=== PATIENT | female | born 1955 | race Caucasian/White ===

== ENCOUNTER 2020-08-06 18:43 | Observation (INO) | payer OTHER ==
[2020-08-06] MEDS ORDERED: Sodium Chloride 0.9% 1000 ML 1,000 ML IV STA (19:33)
[2020-08-06] MEDS ORDERED: PROTONIX 40 MG IV IV ONE ×2 (19:33→19:39)
[2020-08-06] MEDS ORDERED: Hydromorphone 1 mg/ml Injection IV ONE (19:33)
[2020-08-06] MEDS ORDERED: Zofran 4 MG/2 ML VIAL IV ONE (19:33)
[2020-08-06] MEDS ORDERED: Pepcid 20 MG VIAL IV ONE ×2 (19:33→19:39)
--- NOTE | 2020-08-06 19:33 | ERPHSYRPT ---
- History of Present Illness Time Seen by Provider: 08/06/20 19:29 Historian: patient, family Exam Limitations: no limitations Patient Subjective Stated Complaint: NVD x 3 hrs, blood in stool Triage Nursing Assessment: pt to ED c/o NVD and blood in stool x 3 hrs. multiple episodes vomiting and diarrhea in that time. bright red blood in toilet and on toilet paper. abd hx colitis. rates 6/10 pain sharp and worsenign while vomiting. bowel sounds active in all quads. no urinary problems. Physician History: pt has hx of colitis and now has recurrence. not on any meds for this ; abd with general abd tenderness; vomiting. reports BRBPR. reporting chest pain now. Timing/Duration: today Activities at Onset: none Quality: sharpness, stabbing Abdominal Pain Onset Location: LLQ, generalized abdomen Pain Radiation: LLQ, chest Severity of Pain-Max: moderate Severity of Pain-Current: moderate Modifying Factors: Improves With: nothing Associated Symptoms: chest pain, diarrhea, loss of appetite, nausea, vomiting Previous symptoms: different symptoms Allergies/Adverse Reactions: No Known Drug Allergies Allergy (Verified 08/06/20 18:58) Home Medications: Escitalopram Oxalate [Lexapro] 20 mg PO DAILY 06/07/16 [History] Furosemide 20 mg [Lasix 20 mg] 20 mg PO DAILY 06/07/16 [History] Levothyroxine Sodium [Synthroid] 30 mcg PO DAILY 06/07/16 [History] Cholecalciferol (Vitamin D3) [Vitamin D3] 2,000 unit PO DAILY 03/07/20 [History] Levothyroxine Sodium [Unithroid] 25 mcg PO DAILY 08/06/20 [History] Potassium Chloride 10 mg PO DAILY 08/06/20 [History] Hx Tetanus, Diphtheria Vaccination/Date Given: Yes Hx Influenza Vaccination/Date Given: Yes Hx Pneumococcal Vaccination/Date Given: No Immunizations Up to Date: Yes Travel Risk - International Travel Have you traveled outside of the country in past 3 weeks: No - Coronavirus Screening Are you exhibiting any of the following symptoms?: Yes Symptoms: Vomiting/Diarrhea Close contact with a COVID-19 positive Pt in past 14-21 Days: No - Review of Systems Constitutional: No Fever, No Chills Eyes: No Symptoms Ears, Nose, & Throat: No Symptoms Respiratory: No Cough, No Dyspnea Cardiac: Chest Pain, No Edema, No Syncope Abdominal/Gastrointestinal: Abdominal Pain, Nausea, Vomiting, Diarrhea Genitourinary Symptoms: No Dysuria Musculoskeletal: No Back Pain, No Neck Pain Skin: No Symptoms, No Rash Neurological: No Symptoms, No Dizziness, No Focal Weakness, No Sensory Changes Psychological: No Symptoms Endocrine: No Symptoms All Other Systems: Reviewed and Negative - Past Medical History Pertinent Past Medical History: Yes Neurological History: No Pertinent History ENT History: Cataracts Cardiac History: No Pertinent History Respiratory History: No Pertinent History Endocrine Medical History: Hypothyroidism Musculoskeletal History: No Pertinent History GI Medical History: Colitis History: No Pertinent History Psycho-Social History: No Pertinent History Female Reproductive Disorders: No Pertinent History Other Medical History: THYROIDECTOMY, HYSTERECTOMY - Past Surgical History Past Surgical History: Yes Neuro Surgical History: No Pertinent History Cardiac: No Pertinent History Respiratory: No Pertinent History Gastrointestinal: No Pertinent History Genitourinary: No Pertinent History Musculoskeletal: No Pertinent History Female Surgical History: Hysterectomy Other Surgical History: thyroid surgery, abd exploritory sx, scar tissue removed - 1999. - Social History Smoking Status: Never smoker Exposure to second hand smoke: No Drug Use: none Patient Lives Alone: No - Female History Hx Now: No - Nursing Vital Signs Nursing Vital Signs: Initial Vital Signs Temperature 97.5 F 08/06/20 18:50 Pulse Rate 82 08/06/20 18:50 Respiratory Rate 16 08/06/20 18:50 Blood Pressure 120/81 08/06/20 18:50 O2 Sat by Pulse Oximetry 97 08/06/20 18:50 Pain Scale Pain Intensity 0 - Physical Exam General Appearance: no apparent distress, alert Eye Exam: PERRL/EOMI, eyes nml inspection Ears, Nose, Throat Exam: normal ENT inspection, pharynx normal, moist mucous membranes Neck Exam: normal inspection, non-tender, supple, full range of motion Respiratory Exam: normal breath sounds, lungs clear, No respiratory distress Cardiovascular Exam: regular rate/rhythm, normal heart sounds Gastrointestinal/Abdomen Exam: soft, tenderness, No mass, No pulsatile mass, No rebound Pelvic Exam: deferred Rectal Exam: deferred Back Exam: normal inspection, normal range of motion, No CVA tenderness, No vertebral tenderness Extremity Exam: normal inspection, normal range of motion, pelvis stable Neurologic Exam: alert, oriented x 3, cooperative, normal mood/affect, nml cerebellar function, sensation nml, No motor deficits Skin Exam: normal color, warm, dry SpO2: 97 - Course Nursing assessment & vital signs reviewed: Yes EKG Interpreted by Me: Sinus Rhythm, Non-specific ST Changes - Radiology Exams Chest X-ray Interpretation: Reviewed by me, Other (granulomata bilateral) Ordered Tests: Active Orders 24 hr Category Date Time Status EKG-ER Only STAT Care 08/06/20 19:33 Active IV Insertion STAT Care 08/06/20 19:33 Active ABDOMEN AND PELVIS W/0 CONTRAS [CT] Stat Exams 08/06/20 19:34 Taken CHEST 1 VIEW (PORTABLE) Stat Exams 08/06/20 19:34 Taken AMYLASE Stat Lab 08/06/20 19:20 Completed CBC W DIFF Stat Lab 08/06/20 19:20 Completed CMP Stat Lab 08/06/20 19:20 Completed CULTURE,URINE Stat Lab 08/06/20 19:20 Received LIPASE Stat Lab 08/06/20 19:20 Completed Lactic Acid Stat Lab 08/06/20 19:40 Completed TROPONIN Q3H Lab 08/06/20 19:20 Completed TROPONIN Q3H Lab 08/06/20 23:00 Completed TROPONIN Q3H Lab 08/07/20 01:45 Ordered TROPONIN Q3H Lab 08/07/20 04:45 Ordered TROPONIN Q3H Lab 08/07/20 07:45 Ordered UA W/RFX UR CULTURE Stat Lab 08/06/20 19:20 Completed Medication Summary Discontinued Medications Generic Name Dose Route Start Last Admin Trade Name Freq PRN Reason Stop Dose Admin Famotidine 20 mg 08/06/20 19:33 08/06/20 19:50 Pepcid 20 Mg Vial IV 08/06/20 19:34 20 mg STAT ONE Administration Famotidine Confirm 08/06/20 19:39 Pepcid 20 Mg Vial Administered 08/06/20 19:40 Dose 20 mg IV .STK-MED ONE Hydromorphone HCl 0.5 mg 08/06/20 19:33 08/06/20 19:57 Hydromorphone 1 Mg/Ml Injection IV 08/06/20 19:34 0.5 mg STAT ONE Administration Hydromorphone HCl Confirm 08/06/20 19:39 Hydromorphone 1 Mg/Ml Injection Administered 08/06/20 19:40 Dose 1 mg .ROUTE .STK-MED ONE Sodium Chloride 1,000 mls @ 999 mls/hr 08/06/20 19:33 08/06/20 19:45 Sodium Chloride 0.9% 1000 Ml IV 08/06/20 20:33 999 mls/hr .Q1H1M STA Administration Sodium Chloride Confirm 08/06/20 19:40 Sodium Chloride 0.9% 1000 Ml Administered 08/06/20 19:41 Dose 1,000 mls @ ud .ROUTE .STK-MED ONE Levofloxacin/Dextrose 750 mg in 150 mls @ 100 mls/hr 08/06/20 21:04 08/06/20 21:10 Levofloxacin 750mg/150ml D5w IV 08/06/20 22:33 100 ml/hr STAT STA 100 mls/hr Administration Metronidazole 500 mg in 100 mls @ 200 mls/hr 08/06/20 21:05 08/06/20 21:55 Flagyl 500 Mg Ivpb IV 08/06/20 21:34 200 ml/hr STAT STA 200 mls/hr Administration Levofloxacin/Dextrose Confirm 08/06/20 21:09 Levofloxacin 750mg/150ml D5w Administered 08/06/20 21:10 Dose 750 mg in 150 mls @ ud IV .STK-MED ONE Metronidazole Confirm 08/06/20 21:53 Flagyl 500 Mg Ivpb Administered 08/06/20 21:54 Dose 500 mg in 100 mls @ ud IV .STK-MED ONE Ondansetron HCl 4 mg 08/06/20 19:33 08/06/20 19:47 Zofran 4 Mg/2 Ml Vial IV 08/06/20 19:34 4 mg STAT ONE Administration Ondansetron HCl Confirm 08/06/20 19:39 Zofran 4 Mg/2 Ml Vial Administered 08/06/20 19:40 Dose 4 mg .ROUTE .STK-MED ONE Pantoprazole Sodium 40 mg 08/06/20 19:33 08/06/20 19:52 Protonix 40 Mg Iv IV 08/06/20 19:34 40 mg STAT ONE Administration Pantoprazole Sodium Confirm 08/06/20 19:39 Protonix 40 Mg Iv Administered 08/06/20 19:40 Dose 40 mg IV .STK-MED ONE Lab/Rad Data: Laboratory Result Diagrams 08/06/20 19:20 08/06/20 19:20 Laboratory Results 08/06/20 08/06/20 08/06/20 Range/Units 23:09 23:00 19:40 WBC (4.0-10.5) K/mm3 RBC (4.1-5.4) M/mm3 Hgb (12.0-16.0) gm/dl Hct (35-47) % MCV (78-100) fl MCH (26-32) pg MCHC (32-36) g/dl RDW (11.5-14.0) % Plt Count (150-450) K/mm3 MPV (7.5-11.0) fl Gran % (36.0-66.0) % Eos # (Auto) (0-0.5) Absolute Lymphs (auto) (1.0-4.6) Absolute Monos (auto) (0.0-1.3) Lymphocytes % (24.0-44.0) % Monocytes % (0.0-12.0) % Eosinophils % (0.00-5.0) % Basophils % (0.0-0.4) % Absolute Granulocytes (1.4-6.9) Basophils # (0-0.4) Sodium (137-145) mmol/L Potassium (3.5-5.1) mmol/L Chloride (98-107) mmol/L Carbon Dioxide (22-30) mmol/L Anion Gap (5-15) MEQ/L BUN (7-17) mg/dL Creatinine (0.52-1.04) mg/dL Estimated GFR ML/MIN Glucose (74-106) mg/dL Lactic Acid 0.8 (0.4-2.0) Calcium (8.4-10.2) mg/dL Total Bilirubin (0.2-1.3) mg/dL AST (14-36) U/L ALT (0-35) U/L Alkaline Phosphatase (38-126) U/L Troponin I < 0.012 (0.000-0.034) ng/mL Serum Total Protein (6.3-8.2) g/dL Albumin (3.5-5.0) g/dL Amylase (30-110) U/L Lipase (23-300) U/L Urine Color (YELLOW) Urine Appearance (CLEAR) Urine pH (5-6) Ur Specific Roscoe (1.005-1.025) Urine Protein (Negative) Urine Ketones (NEGATIVE) Urine Blood (0-5) Marco A/ul Urine Nitrite (NEGATIVE) Urine Bilirubin (NEGATIVE) Urine Urobilinogen (0-1) mg/dL Ur Leukocyte Esterase (NEGATIVE) Urine WBC (Auto) (0-5) /HPF Urine RBC (Auto) (0-2) /HPF U Epithel Cells (Auto) (FEW) /HPF Urine Bacteria (Auto) (NEGATIVE) /HPF Urine Culture Reflexed (NO) Urine Glucose (NEGATIVE) mg/dL Influenza Type A Ag NEGATIVE (NEGATIVE) Influenza Type B Ag NEGATIVE (NEGATIVE) RSV (PCR) NEGATIVE (Negative) SARS-CoV-2 (PCR) NEGATIVE (NEGATIVE) 08/06/20 08/06/20 08/06/20 Range/Units 19:20 19:20 19:20 WBC 11.7 H (4.0-10.5) K/mm3 RBC 4.47 (4.1-5.4) M/mm3 Hgb 13.4 (12.0-16.0) gm/dl Hct 42.1 (35-47) % MCV 94.2 (78-100) fl MCH 30.0 (26-32) pg MCHC 31.8 L (32-36) g/dl RDW 13.6 (11.5-14.0) % Plt Count 367 (150-450) K/mm3 MPV 9.9 (7.5-11.0) fl Gran % 81.8 H (36.0-66.0) % Eos # (Auto) 0.23 (0-0.5) Absolute Lymphs (auto) 1.04 (1.0-4.6) Absolute Monos (auto) 0.83 (0.0-1.3) Lymphocytes % 8.9 L (24.0-44.0) % Monocytes % 7.1 (0.0-12.0) % Eosinophils % 2.0 (0.00-5.0) % Basophils % 0.2 (0.0-0.4) % Absolute Granulocytes 9.57 H (1.4-6.9) Basophils # 0.02 (0-0.4) Sodium 140 (137-145) mmol/L Potassium 3.5 (3.5-5.1) mmol/L Chloride 102 (98-107) mmol/L Carbon Dioxide 31 H (22-30) mmol/L Anion Gap 10.3 (5-15) MEQ/L BUN 17 (7-17) mg/dL Creatinine 0.90 (0.52-1.04) mg/dL Estimated GFR > 60.0 ML/MIN Glucose 119 H (74-106) mg/dL Lactic Acid (0.4-2.0) Calcium 10.0 (8.4-10.2) mg/dL Total Bilirubin 0.70 (0.2-1.3) mg/dL AST 47 H (14-36) U/L ALT 32 (0-35) U/L Alkaline Phosphatase 121 (38-126) U/L Troponin I < 0.012 (0.000-0.034) ng/mL Serum Total Protein 8.2 (6.3-8.2) g/dL Albumin 4.6 (3.5-5.0) g/dL Amylase 72 (30-110) U/L Lipase 107 (23-300) U/L Urine Color (YELLOW) Urine Appearance (CLEAR) Urine pH (5-6) Ur Specific Roscoe (1.005-1.025) Urine Protein (Negative) Urine Ketones (NEGATIVE) Urine Blood (0-5) Marco A/ul Urine Nitrite (NEGATIVE) Urine Bilirubin (NEGATIVE) Urine Urobilinogen (0-1) mg/dL Ur Leukocyte Esterase (NEGATIVE) Urine WBC (Auto) (0-5) /HPF Urine RBC (Auto) (0-2) /HPF U Epithel Cells (Auto) (FEW) /HPF Urine Bacteria (Auto) (NEGATIVE) /HPF Urine Culture Reflexed (NO) Urine Glucose (NEGATIVE) mg/dL Influenza Type A Ag (NEGATIVE) Influenza Type B Ag (NEGATIVE) RSV (PCR) (Negative) SARS-CoV-2 (PCR) (NEGATIVE) 08/06/20 Range/Units 19:20 WBC (4.0-10.5) K/mm3 RBC (4.1-5.4) M/mm3 Hgb (12.0-16.0) gm/dl Hct (35-47) % MCV (78-100) fl MCH (26-32) pg MCHC (32-36) g/dl RDW (11.5-14.0) % Plt Count (150-450) K/mm3 MPV (7.5-11.0) fl Gran % (36.0-66.0) % Eos # (Auto) (0-0.5) Absolute Lymphs (auto) (1.0-4.6) Absolute Monos (auto) (0.0-1.3) Lymphocytes % (24.0-44.0) % Monocytes % (0.0-12.0) % Eosinophils % (0.00-5.0) % Basophils % (0.0-0.4) % Absolute Granulocytes (1.4-6.9) Basophils # (0-0.4) Sodium (137-145) mmol/L Potassium (3.5-5.1) mmol/L Chloride (98-107) mmol/L Carbon Dioxide (22-30) mmol/L Anion Gap (5-15) MEQ/L BUN (7-17) mg/dL Creatinine (0.52-1.04) mg/dL Estimated GFR ML/MIN Glucose (74-106) mg/dL Lactic Acid (0.4-2.0) Calcium (8.4-10.2) mg/dL Total Bilirubin (0.2-1.3) mg/dL AST (14-36) U/L ALT (0-35) U/L Alkaline Phosphatase (38-126) U/L Troponin I (0.000-0.034) ng/mL Serum Total Protein (6.3-8.2) g/dL Albumin (3.5-5.0) g/dL Amylase (30-110) U/L Lipase (23-300) U/L Urine Color RED (YELLOW) Urine Appearance TURBID (CLEAR) Urine pH 8.0 (5-6) Ur Specific Roscoe 1.013 (1.005-1.025) Urine Protein >=500 (Negative) Urine Ketones SMALL (NEGATIVE) Urine Blood MODERATE (0-5) Marco A/ul Urine Nitrite NEGATIVE (NEGATIVE) Urine Bilirubin MODERATE (NEGATIVE) Urine Urobilinogen 4 (0-1) mg/dL Ur Leukocyte Esterase MODERATE (NEGATIVE) Urine WBC (Auto) 3-5 (0-5) /HPF Urine RBC (Auto) 51-100 (0-2) /HPF U Epithel Cells (Auto) OCCASIONAL (FEW) /HPF Urine Bacteria (Auto) PACKED (NEGATIVE) /HPF Urine Culture Reflexed YES (NO) Urine Glucose NEGATIVE (NEGATIVE) mg/dL Influenza Type A Ag (NEGATIVE) Influenza Type B Ag (NEGATIVE) RSV (PCR) (Negative) SARS-CoV-2 (PCR) (NEGATIVE) - Progress Progress: improved, re-examined Progress Note: 08/06/20 22:32 discussed with pt and Dr. Saavedra and all agree best to place pt in on obs , but also need a rapid COvid to exclude. 08/07/20 00:37 we had to wait for a covid test which added to the time prior to admission, and had to wait until decision to admit was confirmed; but there was some possibility for covid in view of the diarrhea - so this test was best advised. . Discussed with : Paul Will see patient in: hospital (observation) Counseled pt/family regarding: lab results, diagnosis, need for follow-up, rad results - Departure Departure Disposition: Observation Clinical Impression: Colitis Condition: Good Critical Care Time: No Referrals: NICO SAAVEDRA DO [Primary Care Provider] -
[2020-08-06] MEDS ORDERED: Zofran 4 MG/2 ML VIAL ONE (19:39)
[2020-08-06] MEDS ORDERED: Hydromorphone 1 mg/ml Injection ONE (19:39)
[2020-08-06] MEDS ORDERED: Sodium Chloride 0.9% 1000 ML 1,000 ML ONE (19:40)
[2020-08-06 19:43] LABS: Absolute Neutrophil Ct (ANC) 9.57 (1.4-6.9); BASOPHIL % 0.2 % (0.0-0.4); Basophil (Absolute #) 0.02 (0-0.4); Eosinophil (Absolute #) 0.23 (0-0.5); Hematocrit 42.1 % (35-47); Hemoglobin 13.4 gm/dl (12.0-16.0); Lymphocyte (Absolute #) 1.04 (1.0-4.6); Lymphocytes % 8.9 % (24.0-44.0); Mean Cell Volume 94.2 fl (78-100); Mean Corpuscular Hgb Concent. 31.8 g/dl (32-36); Mean Platelet Volume 9.9 fl (7.5-11.0); Monocyte (Absolute #) 0.83 (0.0-1.3); Monocytes % 7.1 % (0.0-12.0); Neutrophil % 81.8 % (36.0-66.0); Platelet Count 367 K/mm3 (150-450); Red Blood Count 4.47 M/mm3 (4.1-5.4); Red Cell Distribution Width 13.6 % (11.5-14.0); White Blood Count 11.7 K/mm3 (4.0-10.5)
[2020-08-06 19:51] LABS: ALBUMIN 4.6 g/dL (3.5-5.0); ALKALINE PHOSPHATASE 121 U/L (38-126); AMYLASE 72 U/L (30-110); ANION GAP 10.3 MEQ/L (5-15); BLOOD UREA NITROGEN 17 mg/dL (7-17); CHLORIDE 102 mmol/L (98-107); Carbon Dioxide 31 mmol/L (22-30); EST GLOMERULAR FILTRATION RATE > 60.0 ML/MIN; Glucose 119 mg/dL (74-106); LIPASE 107 U/L (23-300); Potassium 3.5 mmol/L (3.5-5.1); SGOT/AST 47 U/L (14-36); SGPT/ALT 32 U/L (0-35); SODIUM 140 mmol/L (137-145); Total Protein 8.2 g/dL (6.3-8.2)
[2020-08-06 19:59] LABS: Appearance TURBID (CLEAR); Bacteria PACKED /HPF (NEGATIVE); Bilirubin MODERATE (NEGATIVE); Blood MODERATE Ery/ul (0-5); Glucose NEGATIVE (NEGATIVE); Ketones SMALL (NEGATIVE); Leukocyte Esterase MODERATE (NEGATIVE); Nitrite NEGATIVE (NEGATIVE); Protein,Urine Dip >=500 (Negative); Specific Gravity 1.013 (1.005-1.025); Urobilinogen 4 mg/dL (0-1)
[2020-08-06 20:00] LABS: Epithelial Cells OCCASIONAL /HPF (FEW); RBC 51-100 /HPF (0-2)
[2020-08-06] MEDS ORDERED: LEVOFLOXACIN 750MG/150ML D5W 750 MG/150 ML BAG IV STA (21:04)
[2020-08-06] MEDS ORDERED: FLAGYL 500 MG IVPB 500 MG/100 ML BAG IV STA (21:05)
[2020-08-06] MEDS ORDERED: LEVOFLOXACIN 750MG/150ML D5W 750 MG/150 ML BAG IV ONE (21:09)
[2020-08-06] MEDS ORDERED: FLAGYL 500 MG IVPB 500 MG/100 ML BAG IV ONE (21:53)
[2020-08-06 23:51] LABS: INFLUENZA A NEGATIVE (NEGATIVE); INFLUENZA B NEGATIVE (NEGATIVE); RESPIRATORY SYNCTIAL VIRUS NEGATIVE (Negative)
[2020-08-07] MEDS ORDERED: HUMULIN R SQ PRN (00:56)
[2020-08-07] MEDS ORDERED: Phenergan 25 MG INJ IM PRN (00:56)
[2020-08-07] MEDS: Sodium Chloride 0.9% 1000 ML 1,000 ML IV SCH ×5 (01:17→21:43)
[2020-08-07] MEDS ORDERED: SYNTHROID 50 MCG PO ONE (02:06)
[2020-08-07 05:27] LABS: Absolute Neutrophil Ct (ANC) 5.83 (1.4-6.9); BASOPHIL % 0.1 % (0.0-0.4); Basophil (Absolute #) 0.01 (0-0.4); Eosinophil % 2.3 % (0.00-5.0); Eosinophil (Absolute #) 0.16 (0-0.5); Hematocrit 34.2 % (35-47); Hemoglobin 10.7 gm/dl (12.0-16.0); Lymphocyte (Absolute #) 0.55 (1.0-4.6); Lymphocytes % 7.9 % (24.0-44.0); Mean Cell Volume 95.3 fl (78-100); Mean Corpuscular Hemoglobin 29.8 pg (26-32); Mean Corpuscular Hgb Concent. 31.3 g/dl (32-36); Mean Platelet Volume 9.8 fl (7.5-11.0); Monocyte (Absolute #) 0.41 (0.0-1.3); Monocytes % 5.9 % (0.0-12.0); Neutrophil % 83.8 % (36.0-66.0); Platelet Count 281 K/mm3 (150-450); Red Blood Count 3.59 M/mm3 (4.1-5.4); Red Cell Distribution Width 13.7 % (11.5-14.0)
[2020-08-07 05:42] LABS: ALBUMIN 3.3 g/dL (3.5-5.0); ALKALINE PHOSPHATASE 78 U/L (38-126); ANION GAP 7.3 MEQ/L (5-15); BLOOD UREA NITROGEN 16 mg/dL (7-17); CHLORIDE 105 mmol/L (98-107); Calcium 8.1 mg/dL (8.4-10.2); Carbon Dioxide 28 mmol/L (22-30); Creatinine 1 0.77 mg/dL (0.52-1.04); EST GLOMERULAR FILTRATION RATE > 60.0 ML/MIN; Glucose 103 mg/dL (74-106); Potassium 3.8 mmol/L (3.5-5.1); SGOT/AST 29 U/L (14-36); SGPT/ALT 19 U/L (0-35); SODIUM 136 mmol/L (137-145); Total Protein 5.8 g/dL (6.3-8.2)
[2020-08-07 09:06] LABS: Slide Review 1 YES
--- NOTE | 2020-08-07 09:19 | XRAY ---
Indication: Left lower quadrant pain. Colitis. Multiple contiguous axial images obtained through the abdomen and pelvis without contrast. Comparison: February 28, 2010. Lung bases demonstrates new bilateral dependent atelectasis and right lower lobe calcified granuloma. No infiltrate or effusion. Heart is now enlarged. New large hiatal hernia with partial intrathoracic stomach. Noncontrasted stomach and bowel loops appear nonobstructed. Normal appendix. Mild fluid distended colon throughout its including rectum favoring diarrhea. No free fluid/air. Again hysterectomy. Remaining liver, gallbladder, pancreas, spleen, adrenal glands, kidneys, ureters, and bladder appear unremarkable for noncontrast exam. Minimal aortic calcifications without AAA. Osseous structures intact again with left L5 spondylolysis without spondylolisthesis. Impression: 1. New fluid distended colon favoring diarrhea. 2. New hiatal hernia with partial intrathoracic stomach and cardiomegaly. 3. Stable L5 spondylolysis without spondylolisthesis. Comment: Preliminary interpretation was made by [facility]. No critical discrepancy.
--- NOTE | 2020-08-07 09:19 | XRAY ---
Indication: Chest pain. Comparison: July 28, 2020. Portable chest again demonstrates normal heart and lungs with incidental calcified granulomas. No new/acute findings.
[2020-08-07] MEDS ORDERED: ULTRAM 50 MG PO PRN ×2 (11:26→13:45)
--- NOTE | 2020-08-07 13:42 | PCM.HP ---
History of Present Illness - Chief Complaint Chief Complaint: colitis History of Present Illness: is a 65 year old female with Hx HTN and aquired hypothyroid who presented to ER after sudden onset of vomiting and diarrhea,several bouts of loose stool with red blood,denies fever.States she and her had fried catfish from [place] and she ate 1/2 a piece. Her had the same food and no GI symptoms. No further vomiting. Is tolerating liquids. Has had 3 loose stools today but the last one did not have any red/blood. C/O left sided abdominal discomfort and nausea ,dry mouth.Patient gives a Hx colitis but is not followed by GI specialist. - Review of Systems Constitutional: Fatigue, Other (denies fever or chills) Ears, Nose, & Throat: Other (denies sinus symptoms or sore throat, C/O dry mouth) Cardiac: Chest Pain (fullness epigastrum), Other (takes a prn Lasix 20mg for swelling ) Abdominal/Gastrointestinal: Abdominal Pain, Nausea, Vomiting, Diarrhea, Hematochezia Genitourinary Symptoms: No Symptoms Musculoskeletal: No Symptoms Skin: No Symptoms Neurological: No Symptoms, Headache Psychological: Depression (controlledon current med) Endocrine: Other (Recently was off thyroid meds ,states forgot to take meds.) Hematologic/Lymphatic: No Symptoms Immunological/Allergic: No Symptoms Medications & Allergies Home Medications: Home Medication List Escitalopram Oxalate [Lexapro] 20 mg PO DAILY 06/07/16 [History Confirmed 08/07/20] Furosemide 20 mg [Lasix 20 mg] 20 mg PO DAILY 06/07/16 [History Confirmed 08/07/20] Levothyroxine Sodium [Synthroid] 75 mcg PO HS 06/07/16 [History Confirmed 08/07/20] Cholecalciferol (Vitamin D3) [Vitamin D3] 2,000 unit PO DAILY 03/07/20 [History Confirmed 08/07/20] Potassium Chloride 10 mg PO DAILY 08/06/20 [History Confirmed 08/07/20] Lisinopril 20 mg [Zestril 20 MG] 20 mg PO DAILY 08/07/20 [History Confirmed 08/07/20] Omeprazole 40 mg PO DAILY 08/07/20 [History Confirmed 08/07/20] Thyroid,Pork [[place] Thyroid] 60 mg PO HS 08/07/20 [History Confirmed 08/07/20] Tramadol HCl 50 mg [Ultram 50 mg] 50 mg PO Q6HPRN PRN 08/07/20 [History Confirmed 08/07/20] Allergies/Adverse Reactions: Allergies Allergy/AdvReac Type Severity Reaction Status Date / Time No Known Drug Allergies Allergy Verified 08/07/20 01:26 - Past Medical History Past Medical History: Yes Neurological History: No Pertinent History ENT History: Cataracts Cardiac History: No Pertinent History CARDIAC HISTORY: Hypertension Respiratory History: No Pertinent History Endocrine Medical History: Hypothyroidism Musculoskelatal History: No Pertinent History GI Medical History: Colitis History: No Pertinent History Pyscho-Social History: Depression Reproductive Disorders: No Pertinent History Comment: THYROIDECTOMY, HYSTERECTOMY - Female History Are you now?: No - Past Surgical History Past Surgical History: Yes Neuro Surgical History: No Pertinent History Cardiac History: No Pertinent History Respiratory Surgery: No Pertinent History GI Surgical History: No Pertinent History Genitourinary Surgical Hx: No Pertinent History Musculskeletal Surgical Hx: No Pertinent History Female Surgical History: Hysterectomy Other Surgical History: thyroid surgery, abd exploritory sx, scar tissue removed - 1999. - Social History Smoking Status: Never smoker Exposure to second hand smoke: No Alcohol: None Drug Use: none - Physical Exam Vital Signs: Vital Signs - 24 hr Temp Pulse Resp BP Pulse Ox 08/07/20 12:00 98.9 F 72 20 130/61 98 08/07/20 08:00 98.3 F 64 20 97/48 95 08/07/20 04:00 98.2 F 64 16 110/55 92 L 08/07/20 01:55 98.1 F 69 16 117/64 94 L 08/07/20 00:40 97 08/07/20 00:00 68 20 109/65 95 08/06/20 23:00 74 20 124/59 95 08/06/20 22:00 74 16 122/70 96 08/06/20 21:00 83 16 138/75 95 08/06/20 20:00 84 18 129/71 97 08/06/20 18:50 97.5 F 82 16 120/81 97 General Appearance: no apparent distress Neurologic Exam: alert, oriented x 3, cooperative, normal mood/affect Eye Exam: eyes nml inspection Ears, Nose, Throat Exam: normal ENT inspection Neck Exam: normal inspection (no mass) Respiratory Exam: normal breath sounds, lungs clear Cardiovascular Exam: regular rate/rhythm, normal heart sounds Gastrointestinal/Abdomen Exam: soft, tenderness (left mid and LLQ) Pelvic Exam: not done Rectal Exam: not done Back Exam: normal inspection Results - Labs Lab/Micro Results: Lab Results-Last 24 Hours 08/06/20 08/06/20 08/06/20 Range/Units 19:20 19:20 19:20 WBC 11.7 H (4.0-10.5) K/mm3 RBC 4.47 (4.1-5.4) M/mm3 Hgb 13.4 (12.0-16.0) gm/dl Hct 42.1 (35-47) % MCV 94.2 (78-100) fl MCH 30.0 (26-32) pg MCHC 31.8 L (32-36) g/dl RDW 13.6 (11.5-14.0) % Plt Count 367 (150-450) K/mm3 MPV 9.9 (7.5-11.0) fl Gran % 81.8 H (36.0-66.0) % Eos # (Auto) 0.23 (0-0.5) Absolute Lymphs (auto) 1.04 (1.0-4.6) Absolute Monos (auto) 0.83 (0.0-1.3) Lymphocytes % 8.9 L (24.0-44.0) % Monocytes % 7.1 (0.0-12.0) % Eosinophils % 2.0 (0.00-5.0) % Basophils % 0.2 (0.0-0.4) % Absolute Granulocytes 9.57 H (1.4-6.9) Basophils # 0.02 (0-0.4) Sodium 140 (137-145) mmol/L Potassium 3.5 (3.5-5.1) mmol/L Chloride 102 (98-107) mmol/L Carbon Dioxide 31 H (22-30) mmol/L Anion Gap 10.3 (5-15) MEQ/L BUN 17 (7-17) mg/dL Creatinine 0.90 (0.52-1.04) mg/dL Estimated GFR > 60.0 ML/MIN Glucose 119 H (74-106) mg/dL Lactic Acid (0.4-2.0) Calcium 10.0 (8.4-10.2) mg/dL Total Bilirubin 0.70 (0.2-1.3) mg/dL AST 47 H (14-36) U/L ALT 32 (0-35) U/L Alkaline Phosphatase 121 (38-126) U/L Troponin I (0.000-0.034) ng/mL Serum Total Protein 8.2 (6.3-8.2) g/dL Albumin 4.6 (3.5-5.0) g/dL Amylase 72 (30-110) U/L Lipase 107 (23-300) U/L Urine Color RED (YELLOW) Urine Appearance TURBID (CLEAR) Urine pH 8.0 (5-6) Ur Specific [place] 1.013 (1.005-1.025) Urine Protein >=500 (Negative) Urine Ketones SMALL (NEGATIVE) Urine Blood MODERATE (0-5) Marco A/ul Urine Nitrite NEGATIVE (NEGATIVE) Urine Bilirubin MODERATE (NEGATIVE) Urine Urobilinogen 4 (0-1) mg/dL Ur Leukocyte Esterase MODERATE (NEGATIVE) Urine WBC (Auto) 3-5 (0-5) /HPF Urine RBC (Auto) 51-100 (0-2) /HPF U Epithel Cells (Auto) OCCASIONAL (FEW) /HPF Urine Bacteria (Auto) PACKED (NEGATIVE) /HPF Urine Culture Reflexed YES (NO) Urine Glucose NEGATIVE (NEGATIVE) mg/dL Influenza Type A Ag (NEGATIVE) Influenza Type B Ag (NEGATIVE) RSV (PCR) (Negative) SARS-CoV-2 (PCR) (NEGATIVE) Slides for Path Review 08/06/20 08/06/20 08/06/20 Range/Units 19:20 19:40 23:00 WBC (4.0-10.5) K/mm3 RBC (4.1-5.4) M/mm3 Hgb (12.0-16.0) gm/dl Hct (35-47) % MCV (78-100) fl MCH (26-32) pg MCHC (32-36) g/dl RDW (11.5-14.0) % Plt Count (150-450) K/mm3 MPV (7.5-11.0) fl Gran % (36.0-66.0) % Eos # (Auto) (0-0.5) Absolute Lymphs (auto) (1.0-4.6) Absolute Monos (auto) (0.0-1.3) Lymphocytes % (24.0-44.0) % Monocytes % (0.0-12.0) % Eosinophils % (0.00-5.0) % Basophils % (0.0-0.4) % Absolute Granulocytes (1.4-6.9) Basophils # (0-0.4) Sodium (137-145) mmol/L Potassium (3.5-5.1) mmol/L Chloride (98-107) mmol/L Carbon Dioxide (22-30) mmol/L Anion Gap (5-15) MEQ/L BUN (7-17) mg/dL Creatinine (0.52-1.04) mg/dL Estimated GFR ML/MIN Glucose (74-106) mg/dL Lactic Acid 0.8 (0.4-2.0) Calcium (8.4-10.2) mg/dL Total Bilirubin (0.2-1.3) mg/dL AST (14-36) U/L ALT (0-35) U/L Alkaline Phosphatase (38-126) U/L Troponin I < 0.012 < 0.012 (0.000-0.034) ng/mL Serum Total Protein (6.3-8.2) g/dL Albumin (3.5-5.0) g/dL Amylase (30-110) U/L Lipase (23-300) U/L Urine Color (YELLOW) Urine Appearance (CLEAR) Urine pH (5-6) Ur Specific [place] (1.005-1.025) Urine Protein (Negative) Urine Ketones (NEGATIVE) Urine Blood (0-5) Marco A/ul Urine Nitrite (NEGATIVE) Urine Bilirubin (NEGATIVE) Urine Urobilinogen (0-1) mg/dL Ur Leukocyte Esterase (NEGATIVE) Urine WBC (Auto) (0-5) /HPF Urine RBC (Auto) (0-2) /HPF U Epithel Cells (Auto) (FEW) /HPF Urine Bacteria (Auto) (NEGATIVE) /HPF Urine Culture Reflexed (NO) Urine Glucose (NEGATIVE) mg/dL Influenza Type A Ag (NEGATIVE) Influenza Type B Ag (NEGATIVE) RSV (PCR) (Negative) SARS-CoV-2 (PCR) (NEGATIVE) Slides for Path Review 08/06/20 08/07/20 08/07/20 Range/Units 23:09 02:05 04:42 WBC (4.0-10.5) K/mm3 RBC (4.1-5.4) M/mm3 Hgb (12.0-16.0) gm/dl Hct (35-47) % MCV (78-100) fl MCH (26-32) pg MCHC (32-36) g/dl RDW (11.5-14.0) % Plt Count (150-450) K/mm3 MPV (7.5-11.0) fl Gran % (36.0-66.0) % Eos # (Auto) (0-0.5) Absolute Lymphs (auto) (1.0-4.6) Absolute Monos (auto) (0.0-1.3) Lymphocytes % (24.0-44.0) % Monocytes % (0.0-12.0) % Eosinophils % (0.00-5.0) % Basophils % (0.0-0.4) % Absolute Granulocytes (1.4-6.9) Basophils # (0-0.4) Sodium (137-145) mmol/L Potassium (3.5-5.1) mmol/L Chloride (98-107) mmol/L Carbon Dioxide (22-30) mmol/L Anion Gap (5-15) MEQ/L BUN (7-17) mg/dL Creatinine (0.52-1.04) mg/dL Estimated GFR ML/MIN Glucose (74-106) mg/dL Lactic Acid (0.4-2.0) Calcium (8.4-10.2) mg/dL Total Bilirubin (0.2-1.3) mg/dL AST (14-36) U/L ALT (0-35) U/L Alkaline Phosphatase (38-126) U/L Troponin I < 0.012 < 0.012 (0.000-0.034) ng/mL Serum Total Protein (6.3-8.2) g/dL Albumin (3.5-5.0) g/dL Amylase (30-110) U/L Lipase (23-300) U/L Urine Color (YELLOW) Urine Appearance (CLEAR) Urine pH (5-6) Ur Specific [place] (1.005-1.025) Urine Protein (Negative) Urine Ketones (NEGATIVE) Urine Blood (0-5) Marco A/ul Urine Nitrite (NEGATIVE) Urine Bilirubin (NEGATIVE) Urine Urobilinogen (0-1) mg/dL Ur Leukocyte Esterase (NEGATIVE) Urine WBC (Auto) (0-5) /HPF Urine RBC (Auto) (0-2) /HPF U Epithel Cells (Auto) (FEW) /HPF Urine Bacteria (Auto) (NEGATIVE) /HPF Urine Culture Reflexed (NO) Urine Glucose (NEGATIVE) mg/dL Influenza Type A Ag NEGATIVE (NEGATIVE) Influenza Type B Ag NEGATIVE (NEGATIVE) RSV (PCR) NEGATIVE (Negative) SARS-CoV-2 (PCR) NEGATIVE (NEGATIVE) Slides for Path Review 08/07/20 08/07/20 08/07/20 Range/Units 04:42 04:42 08:15 WBC 7.0 (4.0-10.5) K/mm3 RBC 3.59 L (4.1-5.4) M/mm3 Hgb 10.7 L D (12.0-16.0) gm/dl Hct 34.2 L (35-47) % MCV 95.3 (78-100) fl MCH 29.8 (26-32) pg MCHC 31.3 L (32-36) g/dl RDW 13.7 (11.5-14.0) % Plt Count 281 (150-450) K/mm3 MPV 9.8 (7.5-11.0) fl Gran % 83.8 H (36.0-66.0) % Eos # (Auto) 0.16 (0-0.5) Absolute Lymphs (auto) 0.55 L (1.0-4.6) Absolute Monos (auto) 0.41 (0.0-1.3) Lymphocytes % 7.9 L (24.0-44.0) % Monocytes % 5.9 (0.0-12.0) % Eosinophils % 2.3 (0.00-5.0) % Basophils % 0.1 (0.0-0.4) % Absolute Granulocytes 5.83 (1.4-6.9) Basophils # 0.01 (0-0.4) Sodium 136 L (137-145) mmol/L Potassium 3.8 (3.5-5.1) mmol/L Chloride 105 (98-107) mmol/L Carbon Dioxide 28 (22-30) mmol/L Anion Gap 7.3 (5-15) MEQ/L BUN 16 (7-17) mg/dL Creatinine 0.77 (0.52-1.04) mg/dL Estimated GFR > 60.0 ML/MIN Glucose 103 (74-106) mg/dL Lactic Acid (0.4-2.0) Calcium 8.1 L D (8.4-10.2) mg/dL Total Bilirubin 0.70 (0.2-1.3) mg/dL AST 29 (14-36) U/L ALT 19 (0-35) U/L Alkaline Phosphatase 78 (38-126) U/L Troponin I < 0.012 (0.000-0.034) ng/mL Serum Total Protein 5.8 L (6.3-8.2) g/dL Albumin 3.3 L (3.5-5.0) g/dL Amylase (30-110) U/L Lipase (23-300) U/L Urine Color (YELLOW) Urine Appearance (CLEAR) Urine pH (5-6) Ur Specific [place] (1.005-1.025) Urine Protein (Negative) Urine Ketones (NEGATIVE) Urine Blood (0-5) Marco A/ul Urine Nitrite (NEGATIVE) Urine Bilirubin (NEGATIVE) Urine Urobilinogen (0-1) mg/dL Ur Leukocyte Esterase (NEGATIVE) Urine WBC (Auto) (0-5) /HPF Urine RBC (Auto) (0-2) /HPF U Epithel Cells (Auto) (FEW) /HPF Urine Bacteria (Auto) (NEGATIVE) /HPF Urine Culture Reflexed (NO) Urine Glucose (NEGATIVE) mg/dL Influenza Type A Ag (NEGATIVE) Influenza Type B Ag (NEGATIVE) RSV (PCR) (Negative) SARS-CoV-2 (PCR) (NEGATIVE) Slides for Path Review YES - Radiology Impressions Radiology Exams & Impressions: Radiology Procedures Category Date Time Status ABDOMEN AND PELVIS W/0 CONTRAS [CT] Stat Exams 08/06/20 19:34 Completed CHEST 1 VIEW (PORTABLE) Stat Exams 08/06/20 19:34 Completed Assessment/Plan (1) Acute gastroenteritis Current Visit: Yes Status: Acute Assessment & Plan: IV hydration,, IV Levaquin and Flagyl. Code(s): K52.9 - NONINFECTIVE GASTROENTERITIS AND COLITIS, UNSPECIFIED (2) Hematochezia Current Visit: Yes Status: Acute Code(s): K92.1 - MELENA (3) Hiatal hernia Current Visit: Yes Status: Acute Code(s): K44.9 - DIAPHRAGMATIC HERNIA WITHOUT OBSTRUCTION OR GANGRENE (4) Anemia Current Visit: Yes Status: Acute Qualifiers: Anemia type: other cause Assessment & Plan: lower GI acute blood loss ,stable -no further loss Code(s): D64.9 - ANEMIA, UNSPECIFIED (5) Hypothyroid Current Visit: Yes Status: Chronic Qualifiers: Hypothyroidism type: acquired Qualified Code(s): E03.9 - Hypothyroidism, unspecified Assessment & Plan: TSH elevated but improved ,had been off Levothyroxine Code(s): E03.9 - HYPOTHYROIDISM, UNSPECIFIED (6) HTN (hypertension) Current Visit: Yes Status: Acute Code(s): I10 - ESSENTIAL (PRIMARY) HYPERTENSION (7) UTI (urinary tract infection) Current Visit: Yes Status: Acute Qualifiers: Hematuria presence: with hematuria Assessment & Plan: is on Levaquin,culture is pending Code(s): N39.0 - URINARY TRACT INFECTION, SITE NOT SPECIFIED
[2020-08-07] MEDS: Klor Con 10 MEQ PO SCH (14:34)
[2020-08-07] MEDS: VITAMIN D PO SCH (14:34)
[2020-08-07] MEDS: Lexapro 10 MG PO SCH (14:35)
[2020-08-07] MEDS: Protonix 40MG Tablet PO SCH (14:35)
[2020-08-07] MEDS: Zestril 20 MG PO SCH (14:35)
[2020-08-07 14:40] LABS: BASOPHIL % 0.2 % (0.0-0.4); Basophil (Absolute #) 0.01 (0-0.4); Eosinophil % 3.4 % (0.00-5.0); Hematocrit 34.1 % (35-47); Hemoglobin 10.6 gm/dl (12.0-16.0); Lymphocyte (Absolute #) 0.73 (1.0-4.6); Lymphocytes % 12.6 % (24.0-44.0); Mean Cell Volume 96.9 fl (78-100); Mean Corpuscular Hemoglobin 30.1 pg (26-32); Mean Corpuscular Hgb Concent. 31.1 g/dl (32-36); Mean Platelet Volume 10.1 fl (7.5-11.0); Monocyte (Absolute #) 0.47 (0.0-1.3); Monocytes % 8.1 % (0.0-12.0); Neutrophil % 75.7 % (36.0-66.0); Platelet Count 267 K/mm3 (150-450); Red Blood Count 3.52 M/mm3 (4.1-5.4); Red Cell Distribution Width 13.9 % (11.5-14.0); White Blood Count 5.8 K/mm3 (4.0-10.5)
[2020-08-07 15:26] LABS: ALBUMIN 3.1 g/dL (3.5-5.0); ALKALINE PHOSPHATASE 74 U/L (38-126); ANION GAP 8.6 MEQ/L (5-15); BLOOD UREA NITROGEN 15 mg/dL (7-17); CHLORIDE 106 mmol/L (98-107); Calcium 8.1 mg/dL (8.4-10.2); Carbon Dioxide 27 mmol/L (22-30); Creatinine 1 0.82 mg/dL (0.52-1.04); EST GLOMERULAR FILTRATION RATE > 60.0 ML/MIN; Glucose 89 mg/dL (74-106); Potassium 3.6 mmol/L (3.5-5.1); SGOT/AST 29 U/L (14-36); SGPT/ALT 19 U/L (0-35); SODIUM 138 mmol/L (137-145); Total Protein 5.9 g/dL (6.3-8.2)
[2020-08-07] MEDS ORDERED: SODIUM CHLORIDE 0.9% IV PRN (16:25)
[2020-08-07] MEDS ORDERED: PHENERGAN IV PRN (16:25)
[2020-08-07 19:15] LABS: Absolute Neutrophil Ct (ANC) 2.36 (1.4-6.9); BASOPHIL % 0.4 % (0.0-0.4); Basophil (Absolute #) 0.02 (0-0.4); Eosinophil % 4.4 % (0.00-5.0); Hematocrit 32.5 % (35-47); Hemoglobin 10.1 gm/dl (12.0-16.0); Lymphocyte (Absolute #) 1.39 (1.0-4.6); Lymphocytes % 30.8 % (24.0-44.0); Mean Cell Volume 96.2 fl (78-100); Mean Corpuscular Hemoglobin 29.9 pg (26-32); Mean Corpuscular Hgb Concent. 31.1 g/dl (32-36); Mean Platelet Volume 9.2 fl (7.5-11.0); Monocyte (Absolute #) 0.54 (0.0-1.3); Neutrophil % 52.4 % (36.0-66.0); Platelet Count 256 K/mm3 (150-450); Red Blood Count 3.38 M/mm3 (4.1-5.4); Red Cell Distribution Width 13.7 % (11.5-14.0); White Blood Count 4.5 K/mm3 (4.0-10.5)
[2020-08-07 19:25] LABS: ANION GAP 6.9 MEQ/L (5-15); BLOOD UREA NITROGEN 7 mg/dL (7-17); CHLORIDE 108 mmol/L (98-107); Carbon Dioxide 24 mmol/L (22-30); Creatinine 1 0.78 mg/dL (0.52-1.04); EST GLOMERULAR FILTRATION RATE > 60.0 ML/MIN; Glucose 89 mg/dL (74-106); Potassium 3.4 mmol/L (3.5-5.1); SODIUM 136 mmol/L (137-145)
[2020-08-07] MEDS: NORCO 5/325 MG PO PRN (20:02)
[2020-08-07] MEDS ORDERED: POTASSIUM CHLORIDE 20 mEq IN WATER 100ML 20 MEQ/100 ML BAG IV ONE (21:09)
[2020-08-07] MEDS ORDERED: LEVOFLOXACIN 750MG/150ML D5W 750 MG/150 ML BAG IV SCH (22:00)
[2020-08-07] MEDS ORDERED: SYNTHROID 75 MCG PO SCH (22:00)
[2020-08-07] MEDS ORDERED: THYROID PORK PO SCH (22:00)
[2020-08-07] MEDS ORDERED: LEVOTHYROXINE SODIUM 75 MCG PO SCH (22:00)
[2020-08-08] MEDS: NORCO 5/325 MG PO PRN ×2 (02:15→08:11)
[2020-08-08] MEDS: Sodium Chloride 0.9% 1000 ML 1,000 ML IV SCH (02:17)
[2020-08-08 05:23] LABS: Absolute Neutrophil Ct (ANC) 1.46 (1.4-6.9); BASOPHIL % 0.3 % (0.0-0.4); Basophil (Absolute #) 0.01 (0-0.4); Eosinophil % 5.9 % (0.00-5.0); Eosinophil (Absolute #) 0.22 (0-0.5); Hematocrit 33.5 % (35-47); Hemoglobin 10.4 gm/dl (12.0-16.0); Lymphocyte (Absolute #) 1.35 (1.0-4.6); Lymphocytes % 36.5 % (24.0-44.0); Mean Cell Volume 96.8 fl (78-100); Mean Corpuscular Hemoglobin 30.1 pg (26-32); Mean Platelet Volume 9.7 fl (7.5-11.0); Monocyte (Absolute #) 0.66 (0.0-1.3); Monocytes % 17.8 % (0.0-12.0); Neutrophil % 39.5 % (36.0-66.0); Platelet Count 276 K/mm3 (150-450); Red Blood Count 3.46 M/mm3 (4.1-5.4); Red Cell Distribution Width 13.9 % (11.5-14.0); White Blood Count 3.7 K/mm3 (4.0-10.5)
[2020-08-08] MEDS ORDERED: Sodium Chloride 0.9% 1000 ML 1,000 ML IV SCH (08:30)
[2020-08-08] MEDS ORDERED: NON-FORMULARY ITEM (Escitalopram Oxalate [Lexapro] 20 MG) PO SCH (10:00)
[2020-08-08] MEDS ORDERED: NON-FORMULARY ITEM (Cholecalciferol (Vitamin D3) [Vitamin D3] 2,000 UNIT) PO SCH (10:00)
[2020-08-08] MEDS ORDERED: CLARITIN-D 24HR TABLET PO SCH (10:00)
[2020-08-08] MEDS ORDERED: LASIX 20 MG PO SCH (10:00)
[2020-08-08] MEDS ORDERED: NON-FORMULARY ITEM (Omeprazole [Omeprazole] 40 MG) PO SCH (10:00)
--- NOTE | 2020-08-08 10:17 | XRAY ---
Indication: Headache. Intermittent left temporal pain 2 months. Multiple contiguous axial images obtained through the head without contrast. Comparison: None Age-appropriate global atrophy. No acute intracranial hemorrhage, abnormal extra-axial fluid collection, or mass effect. Fourth ventricle is midline without hydrocephalus. Martinez-white matter differentiation preserved. Bony calvarium intact. Visualized paranasal sinuses and mastoid air cells are clear. Impression: Negative CT head without contrast exam.
[2020-08-08] MEDS: Protonix 40MG Tablet PO SCH (10:24)
[2020-08-08] MEDS: Klor Con 10 MEQ PO SCH (10:24)
[2020-08-08] MEDS: VITAMIN D PO SCH (10:24)
[2020-08-08] MEDS: Lexapro 10 MG PO SCH (10:24)
[2020-08-08] MEDS: Zestril 20 MG PO SCH (10:24)
[2020-08-08] MEDS: ANASPAZ 0.125 MG PO PRN ×2 (11:48→16:36)
[2020-08-08] MEDS: FLAGYL 500 MG IVPB 500 MG/100 ML BAG IV SCH ×2 (11:49→16:26)
[2020-08-08] MEDS ORDERED: solu-MEDROL 125 MG IV SCH (14:30)
--- NOTE | 2020-08-08 15:59 | PCM.DCORD ---
- Discharge Disposition: Home, Self-Care Condition: Good Prescriptions: New Hyoscyamine Sulfate 0.125 mg [Anaspaz 0.125 mg] 0.125 mg PO 1-3XD PRN tab.rapdis PRN Reason: Diarrhea P-Ephed Sul/Loratadine 24Hr [Claritin-D 24Hr Tablet] 1 each PO DAILY #30 tab.sr.24h Metronidazole 500 mg Premix [Flagyl 500 mg Ivpb] 500 mg IV Q6HT bag Potassium Chloride 10 Meq Tab* [Klor Con 10 MEQ] 10 meq PO DAILY tab Prednisone 10 mg [Deltasone 10 mg] 0 mg PO UD #10 tablet Continue Levothyroxine Sodium [Synthroid] 75 mcg PO HS Furosemide 20 mg [Lasix 20 mg] 20 mg PO DAILY Escitalopram Oxalate [Lexapro] 20 mg PO DAILY Cholecalciferol (Vitamin D3) [Vitamin D3] 2,000 unit PO DAILY Potassium Chloride 10 mg PO DAILY Lisinopril 20 mg [Zestril 20 MG] 20 mg PO DAILY Thyroid,Pork [[place] Thyroid] 60 mg PO HS Omeprazole 40 mg PO DAILY Tramadol HCl 50 mg [Ultram 50 mg] 50 mg PO Q6HPRN PRN PRN Reason: Pain Instructions: Diarrhea in Adolescents and Adults Follow up with: ZACH AZUL JR [NON-STAFF PHY W/O PRIVILEGES] - Call for Appointment (patient will scheudle follow upwith dr of choice ) RAHEL DLOL MD [NON-STAFF PHY W/O PRIVILEGES] - Call for Appointment (DO NOT CALL ) TOR FERRER MD [NON-STAFF PHY W/O PRIVILEGES] - Call for Appointment (will schedule follow up appointment) NICO TYSON DO [Primary Care Provider] - Forms: Discharge Instructions
[2020-08-08 16:20] VITALS: BP 138/66; PULSE 68; O2SAT 92
== END 2020-08-08 17:41 | disposition home or self-care (01) ==
LOC: ED 18:43 → MED SURG 08-07 00:57
PROVIDERS: ADMIT Family Medicine; ATTEND Family Medicine
DX: K52.9 Noninfective gastroenteritis and colitis, unspecified (principal); K92.1 Melena; K44.9 Diaphragmatic hernia without obstruction or gangrene; R11.2 Nausea with vomiting, unspecified; R07.9 Chest pain, unspecified; E03.9 Hypothyroidism, unspecified; D64.9 Anemia, unspecified; I10 Essential (primary) hypertension; N39.0 Urinary tract infection, site not specified; R51.9 Headache, unspecified; Z79.899 Other long term (current) drug therapy
CPT/HCPCS: 0241U; 36000; 36415; 70450; 71045; 74176; 80048; 80053; 81001; 82150; 83605; 83690; 84443; 84484; 85025; 85652; 86038; 87086; 93005; 93268; 96360; 96365; 96367; 96374; 96375; 99284; G0378; J1170; J1956; J2405; J2930; J3480; A9270-GY

== ENCOUNTER 2020-08-29 14:28 | Day surgery (SDC) | payer OTHER ==
[2020-08-29] MEDS ORDERED: Lactated Ringers 1,000 ML IV SCH (15:00)
[2020-08-29] MEDS ORDERED: DIPRIVAN 200 MG/20 ML IV ONE ×3 (16:46→17:04)
[2020-08-29] MEDS ORDERED: Xylocaine-Mpf 2% 5 Ml Vial ONE (16:46)
[2020-08-29] MEDS ORDERED: GlucaGen 1 MG ONE (17:03)
[2020-08-29 18:10] VITALS: BP 147/78; PULSE 79; O2SAT 98
[2020-08-29 19:05] LABS: 027 TOX PROD PRESUMPTIVE NEGATIVE (NEGATIVE)
[2020-08-29 19:18] LABS: TOXIGENIC C. DIFF ORG POSITIVE (NEGATIVE)
--- NOTE | 2020-08-31 07:46 | OP ---
SURGERY DATE/TIME: 08/29/2020 1645 PREOPERATIVE DIAGNOSES: 1) Bloody diarrhea. 2) Epigastric pain. 3) Nausea. 4) History of reflux. POSTOPERATIVE DIAGNOSES: 1) Grade C/D reflux. 2) Small hiatal hernia. 3) Diffuse mild left colon colitis not diverticulitis. PROCEDURES: 1) EGD with antral biopsy. 2) Colonoscopy with multiple left-sided biopsy. SURGEON: Last Vasquez M.D. ANESTHESIA: MAC. COMPLICATIONS: None. CONDITION: Stable. ADDITIONAL FINDINGS: Moderate internal hemorrhoids. INDICATION: The patient has not had a recent examination. She is due for a screening exam. She has had bloody diarrhea. She is concerned. She has intermittent episodes where she cramps up and has severe abdominal discomfort. She has history of reflux, epigastric discomfort. She has not had a recent endoscopic exam. DESCRIPTION OF PROCEDURE: She is taken to endoscopy. Left lateral decubitus position. MAC sedation provided. Pharyngoesophageal junction cannulated. Esophagus normal down to gastroesophageal junction. Small hiatal hernia. Grade C/D gastroesophageal reflux disease. The fundus, body there were polyps. Polyps were taken on the greater curvature of the mid stomach submitted in one jar as gastric polyps. There was slight gastritis of the antrum. Assistant Controller biopsy obtained. Pylorus satisfactory. Duodenal bulb satisfactory. Second portion satisfactory. The scope looped upon itself satisfactory. Small hiatal hernia. Scope withdrawn. Anal digital examination is normal. Scope introduced. Scope advanced to the cecum. Ileocecal valve and appendiceal orifice were normal but ileocecal valve was cannulated and 2 inches of ileum was seen and it was normal. No suggestion of any inflammatory condition or Crohn's here. The right side was actually good. The ascending, hepatic, transverse, somewhere in the splenic flexure left side there started to be an intermittent splotchy erythema 1 cm areas every couple of inches numbering 20-30 down the left side. There was slight mucous. There were moderate internal hemorrhoids. Assistant Controller biopsies were taken. The patient tolerated the procedure satisfactory. Findings and pictures were discussed with the in the waiting room.
== END 2020-08-29 18:15 | disposition home or self-care (01) ==
LOC: SDC 14:28
PROVIDERS: ATTEND Surgery
DX: K21.9 Gastro-esophageal reflux disease without esophagitis (principal); K92.1 Melena; R10.13 Epigastric pain; K44.9 Diaphragmatic hernia without obstruction or gangrene; R11.0 Nausea; K31.7 Polyp of stomach and duodenum; K64.8 Other hemorrhoids
CPT/HCPCS: 87045; 87046; 87328; 87329; 87493; 88305; J1610; J2704

== ENCOUNTER 2021-10-22 18:18 | Emergency (ER) | payer MEDICARE, OTHER ==
[2021-10-22] MEDS ORDERED: SUBLIMAZE 100 MCG/2 ML IV ONE (18:27)
[2021-10-22] MEDS ORDERED: Sodium Chloride 0.9% 1000 ML 1,000 ML IV STA (18:27)
[2021-10-22] MEDS ORDERED: BABY ASPIRIN 81 MG CHEW PO ONE (18:27)
[2021-10-22 18:46] LABS: Absolute Neutrophil Ct (ANC) 4.09 (1.4-6.9); Basophil (Absolute #) 0.04 (0-0.4); Eosinophil % 2.6 % (0.00-5.0); Eosinophil (Absolute #) 0.19 (0-0.5); Hematocrit 39.6 % (35-47); Hemoglobin 12.9 gm/dl (12.0-16.0); Lymphocyte (Absolute #) 2.21 (1.0-4.6); Lymphocytes % 30.3 % (24.0-44.0); Mean Cell Volume 92.1 fl (78-100); Mean Corpuscular Hgb Concent. 32.6 g/dl (32-36); Mean Platelet Volume 10.3 fl (7.5-11.0); Monocyte (Absolute #) 0.77 (0.0-1.3); Monocytes % 10.5 % (0.0-12.0); Neutrophil % 56.1 % (36.0-66.0); Platelet Count 329 K/mm3 (150-450); Red Cell Distribution Width 13.1 % (11.5-14.0); White Blood Count 7.3 K/mm3 (4.0-10.5)
[2021-10-22] MEDS ORDERED: BABY ASPIRIN 81 MG CHEW ONE (18:50)
[2021-10-22] MEDS ORDERED: Sodium Chloride 0.9% 1000 ML 1,000 ML ONE (18:50)
[2021-10-22] MEDS ORDERED: SUBLIMAZE 100 MCG/2 ML ONE (18:50)
[2021-10-22 19:00] LABS: INR 0.9 (0.8-3.0); PROTIME 10.6 SECONDS (9.4-12.5)
[2021-10-22 19:16] LABS: ALKALINE PHOSPHATASE 115 U/L (38-126); AMYLASE 72 U/L (30-110); ANION GAP 11.4 MEQ/L (5-15); BLOOD UREA NITROGEN 17 mg/dL (7-17); CHLORIDE 101 mmol/L (98-107); Calcium 9.8 mg/dL (8.4-10.2); Carbon Dioxide 29 mmol/L (22-30); EST GLOMERULAR FILTRATION RATE > 60.0 ML/MIN; Glucose 88 mg/dL (74-106); LIPASE 140 U/L (23-300); NT PRO BNP 140 pg/mL (0-900); Potassium 3.8 mmol/L (3.5-5.1); SGOT/AST 27 U/L (14-36); SGPT/ALT 15 U/L (0-35); SODIUM 138 mmol/L (137-145); Total Protein 6.8 g/dL (6.3-8.2)
--- NOTE | 2021-10-22 19:37 | ERPHSYRPT ---
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 For 2 days. She recently started some compounded hormone therapy. She rates her pain a 7 of 10 she gets lightheaded and she has been nauseous. She has no cardiac history. Timing/Duration: yesterday Activities at Onset: none Quality: tightness Location: substernal, epigastric Chest Pain Radiation: no radiation Severity of Pain-Max: moderate Severity of Pain-Current: moderate Modifying Factors: Improves With: exertion Associated Symptoms: nausea Prior Chest Pain/Cardiac Workup: no prior chest pain Nitro Today/Relief: no nitro taken today Aspirin Treatment Today: no aspirin today Allergies/Adverse Reactions: No Known Drug Allergies Allergy (Verified 10/22/21 18:36) Home Medications: Escitalopram Oxalate [Lexapro] 20 mg PO DAILY 06/07/16 [History] Furosemide 20 mg [Lasix 20 mg] 20 mg PO DAILY 06/07/16 [History] Levothyroxine Sodium [Synthroid] 75 mcg PO HS 06/07/16 [History] Cholecalciferol (Vitamin D3) [Vitamin D3] 2,000 unit PO DAILY 03/07/20 [History] Potassium Chloride 10 mg PO DAILY 08/06/20 [History] Thyroid,Pork [[place] Thyroid] 60 mg PO HS 08/07/20 [History] Hx Tetanus, Diphtheria Vaccination/Date Given: Yes Hx Influenza Vaccination/Date Given: Yes Hx Pneumococcal Vaccination/Date Given: No Immunizations Up to Date: Yes Travel Risk - International Travel Have you traveled outside of the country in past 3 weeks: No - Coronavirus Screening Are you exhibiting any of the following symptoms?: No Close contact with a COVID-19 positive Pt in past 14-21 Days: No - Vaccine Status Have you recieved a Covid-19 vaccination: Yes Patient Admitting Representative: mSnap - Vaccination Dates Date of 2cond Vaccination (if applicable): 2020 - Past Medical History Pertinent Past Medical History: Yes Neurological History: No Pertinent History ENT History: Cataracts Cardiac History: No Pertinent History Respiratory History: No Pertinent History Endocrine Medical History: Hypothyroidism Musculoskeletal History: No Pertinent History GI Medical History: Colitis History: No Pertinent History Psycho-Social History: Depression Female Reproductive Disorders: No Pertinent History Other Medical History: THYROIDECTOMY, HYSTERECTOMY - Past Surgical History Past Surgical History: Yes Neuro Surgical History: No Pertinent History Cardiac: No Pertinent History Respiratory: No Pertinent History Gastrointestinal: No Pertinent History Genitourinary: No Pertinent History Musculoskeletal: No Pertinent History Female Surgical History: Hysterectomy Other Surgical History: thyroid surgery, abd exploritory sx, scar tissue removed - 1999. - Social History Smoking Status: Never smoker Exposure to second hand smoke: Yes Drug Use: none Patient Lives Alone: No - Nursing Vital Signs Nursing Vital Signs: Initial Vital Signs Pulse Rate 83 10/22/21 18:19 Respiratory Rate 18 10/22/21 18:19 Blood Pressure 142/85 10/22/21 18:19 O2 Sat by Pulse Oximetry 95 10/22/21 18:19 Pain Scale Pain Intensity 4 - Physical Exam General Appearance: mild distress, alert Eye Exam: PERRL/EOMI, eyes nml inspection Ears, Nose, Throat Exam: normal ENT inspection, moist mucous membranes Neck Exam: normal inspection, non-tender, supple, full range of motion Respiratory Exam: normal breath sounds, lungs clear, No respiratory distress Cardiovascular Exam: regular rate/rhythm, normal heart sounds Gastrointestinal/Abdomen Exam: soft, No tenderness, No mass Back Exam: normal inspection, No CVA tenderness, No vertebral tenderness Extremity Exam: normal inspection, normal range of motion Neurologic Exam: alert, oriented x 3, cooperative, normal mood/affect, sensation nml, No motor deficits Skin Exam: normal color, warm, dry SpO2: 95 - Course EKG Interpreted by Me: RATE (81), Sinus Rhythm, NORMAL AXIS, NORMAL INTERVALS, NORMAL QRS, NORMAL ST-T - Radiology Exams Chest X-ray Interpretation: Interpreted by me, Negative - CT Exams Chest CT Interpretation: Other (No PE there is new cardiomegaly without signs of CHF and there is an enlarging hiatal hernia with part of the stomach now intrathoracic) Ordered Tests: Active Orders 24 hr Category Date Time Status EKG-ER Only STAT Care 10/22/21 18:27 Active IV Insertion STAT Care 10/22/21 18:27 Active CHEST 1 VIEW (PORTABLE) Stat Exams 10/22/21 18:28 Taken CHEST WITH CONTRAST [CT] Stat Exams 10/22/21 19:12 Taken AMYLASE Stat Lab 10/22/21 18:30 Completed CBC W DIFF Stat Lab 10/22/21 18:27 Completed CMP Stat Lab 10/22/21 18:30 Completed D-DIMER QUANTITATIVE Stat Lab 10/22/21 18:30 Completed LIPASE Stat Lab 10/22/21 18:30 Completed Lactic Acid Stat Lab 10/22/21 18:40 Completed NT PRO BNP Stat Lab 10/22/21 18:30 Completed PROTIME WITH INR Stat Lab 10/22/21 18:30 Completed TROPONIN Q3H Lab 10/22/21 18:30 Completed TROPONIN Q3H Lab 10/22/21 21:30 Ordered TROPONIN Q3H Lab 10/23/21 00:30 Ordered TROPONIN Q3H Lab 10/23/21 03:30 Ordered TROPONIN Q3H Lab 10/23/21 06:30 Ordered UA W/RFX CULTURE Stat Lab 10/22/21 Ordered Medication Summary Generic Name Dose Route Start Last Admin Trade Name Freq PRN Reason Stop Dose Admin Hydrocodone Bitart/Acetaminophen 2 tab 10/22/21 20:46 Hydrocodone/Apap 5/325 Mg Tablet PO 10/22/21 20:47 SENT HOME W/ PATIENT ONE Pantoprazole Sodium 40 mg 10/22/21 20:47 Protonix (Pantoprazole) 40 Mg Tablet PO 10/22/21 20:48 STAT ONE Discontinued Medications Generic Name Dose Route Start Last Admin Trade Name Freq PRN Reason Stop Dose Admin Aspirin 324 mg 10/22/21 18:27 10/22/21 18:54 Aspirin 81 Mg Tab.Chew PO 10/22/21 18:28 324 mg STAT ONE Administration Aspirin Confirm 10/22/21 18:50 Aspirin 81 Mg Tab.Chew Administered 10/22/21 18:51 Dose 324 mg .ROUTE .STK-MED ONE Fentanyl Citrate 25 mcg 10/22/21 18:27 10/22/21 18:54 Fentanyl Citrate 100 Mcg/2 Ml* Vial IV 10/22/21 18:28 25 mcg STAT ONE Administration Fentanyl Citrate Confirm 10/22/21 18:50 Fentanyl Citrate 100 Mcg/2 Ml* Vial Administered 10/22/21 18:51 Dose 100 mcg .ROUTE .STK-MED ONE Sodium Chloride 1,000 mls @ 999 mls/hr 10/22/21 18:27 10/22/21 19:55 Sodium Chloride 0.9% 1000 Ml IV 10/22/21 19:27 Infused .Q1H1M STA Infusion Sodium Chloride Confirm 10/22/21 18:50 Sodium Chloride 0.9% 1000 Ml Administered 10/22/21 18:51 Dose 1,000 mls @ ud .ROUTE .STK-MED ONE Lab/Rad Data: Laboratory Result Diagrams 10/22/21 18:27 10/22/21 18:30 Laboratory Results 10/22/21 10/22/21 10/22/21 Range/Units 18:40 18:30 18:30 WBC (4.0-10.5) K/mm3 RBC (4.1-5.4) M/mm3 Hgb (12.0-16.0) gm/dl Hct (35-47) % MCV (78-100) fl MCH (26-32) pg MCHC (32-36) g/dl RDW (11.5-14.0) % Plt Count (150-450) K/mm3 MPV (7.5-11.0) fl Gran % (36.0-66.0) % Eos # (Auto) (0-0.5) Absolute Lymphs (auto) (1.0-4.6) Absolute Monos (auto) (0.0-1.3) Lymphocytes % (24.0-44.0) % Monocytes % (0.0-12.0) % Eosinophils % (0.00-5.0) % Basophils % (0.0-0.4) % Absolute Granulocytes (1.4-6.9) Basophils # (0-0.4) PT 10.6 (9.4-12.5) SECONDS INR 0.90 (0.8-3.0) D-Dimer 601 H* (215-500) ng/mL Sodium (137-145) mmol/L Potassium (3.5-5.1) mmol/L Chloride (98-107) mmol/L Carbon Dioxide (22-30) mmol/L Anion Gap (5-15) MEQ/L BUN (7-17) mg/dL Creatinine (0.52-1.04) mg/dL Estimated GFR ML/MIN Glucose (74-106) mg/dL Lactic Acid 0.8 (0.4-2.0) Calcium (8.4-10.2) mg/dL Total Bilirubin (0.2-1.3) mg/dL AST (14-36) U/L ALT (0-35) U/L Alkaline Phosphatase (38-126) U/L Troponin I < 0.012 (0.000-0.034) ng/mL NT-Pro-B Natriuret Pep (0-900) pg/mL Serum Total Protein (6.3-8.2) g/dL Albumin (3.5-5.0) g/dL Amylase (30-110) U/L Lipase (23-300) U/L 10/22/21 10/22/21 Range/Units 18:30 18:27 WBC 7.3 (4.0-10.5) K/mm3 RBC 4.30 (4.1-5.4) M/mm3 Hgb 12.9 (12.0-16.0) gm/dl Hct 39.6 (35-47) % MCV 92.1 (78-100) fl MCH 30.0 (26-32) pg MCHC 32.6 (32-36) g/dl RDW 13.1 (11.5-14.0) % Plt Count 329 (150-450) K/mm3 MPV 10.3 (7.5-11.0) fl Gran % 56.1 (36.0-66.0) % Eos # (Auto) 0.19 (0-0.5) Absolute Lymphs (auto) 2.21 (1.0-4.6) Absolute Monos (auto) 0.77 (0.0-1.3) Lymphocytes % 30.3 (24.0-44.0) % Monocytes % 10.5 (0.0-12.0) % Eosinophils % 2.6 (0.00-5.0) % Basophils % 0.5 (0.0-0.4) % Absolute Granulocytes 4.09 (1.4-6.9) Basophils # 0.04 (0-0.4) PT (9.4-12.5) SECONDS INR (0.8-3.0) D-Dimer (215-500) ng/mL Sodium 138 (137-145) mmol/L Potassium 3.8 (3.5-5.1) mmol/L Chloride 101 (98-107) mmol/L Carbon Dioxide 29 (22-30) mmol/L Anion Gap 11.4 (5-15) MEQ/L BUN 17 (7-17) mg/dL Creatinine 0.90 (0.52-1.04) mg/dL Estimated GFR > 60.0 ML/MIN Glucose 88 (74-106) mg/dL Lactic Acid (0.4-2.0) Calcium 9.8 (8.4-10.2) mg/dL Total Bilirubin 0.40 (0.2-1.3) mg/dL AST 27 (14-36) U/L ALT 15 (0-35) U/L Alkaline Phosphatase 115 (38-126) U/L Troponin I (0.000-0.034) ng/mL NT-Pro-B Natriuret Pep 140 (0-900) pg/mL Serum Total Protein 6.8 (6.3-8.2) g/dL Albumin 4.0 (3.5-5.0) g/dL Amylase 72 (30-110) U/L Lipase 140 (23-300) U/L - Progress Progress: improved Air Movement: good Blood Culture(s) Obtained: No Antibiotics given: No - Departure Departure Disposition: Home Clinical Impression: GERD (gastroesophageal reflux disease) Condition: Stable Critical Care Time: No Referrals: NICO TYSON DO [Primary Care Provider] - Follow up/PCP as directed Instructions: Acid Reflux and GERD in Adults (DC) Prescriptions: Hydrocodone/Acetaminophen [Hydrocodone-Acetamin 5-325 mg] 1 tab PO Q6HPRN PRN 3 Days #12 tablet MDD 4 PRN Reason: Pain PANTOPRAZOLE 40 mg Tablet [Protonix 40MG Tablet] 40 mg PO QAM 30 Days #30 tab
[2021-10-22 20:25] VITALS: BP 147/68; PULSE 72
[2021-10-22 20:46] VITALS: O2SAT 95
[2021-10-22] MEDS ORDERED: NORCO 5/325 MG PO ONE (20:46)
[2021-10-22] MEDS ORDERED: Protonix 40MG Tablet PO ONE (20:47)
[2021-10-22] MEDS ORDERED: Protonix 40MG Tablet ONE (20:50)
[2021-10-22] MEDS ORDERED: NORCO 5/325 MG ONE (20:50)
--- NOTE | 2021-10-23 08:43 | XRAY ---
Indication: Chest pain. Comparison: August 06, 2020. Portable chest demonstrates borderline cardiomegaly without CHF. Again small hiatal hernia. No focal infiltrate, consolidation, or large effusion. Stable right perihilar calcified granulomas. Bony thorax intact. Impression: Nonacute chest with chronic features.
--- NOTE | 2021-10-23 08:43 | XRAY ---
Indication: Chest pain. Elevated d-dimer. Multiple contiguous axial images obtained through the chest using 100 cc Isovue 370 contrast and PE protocol. Comparison: CT chest without contrast June 15, 2015. There is good opacification of the pulmonary arteries to include the lobar and segmental branches. No pulmonary embolus. Heart is now enlarged. Aorta is normal in course and caliber. Again incidental small mediastinal and right hilar calcified nodes. Enlarging moderate size hiatal hernia with now partial intrathoracic stomach. Lungs again demonstrates mild bilateral dependent atelectasis and right lower lobe calcified granuloma. No suspicious pulmonary mass/nodule, infiltrate, consolidation, or effusion. Bony thorax intact. Limited upper abdomen unremarkable. Impression: 1. Negative pulmonary embolus. No acute cardiopulmonary abnormalities. 2. Enlarging hiatal hernia with now partial intrathoracic stomach. 3. New cardiomegaly without CHF. 4. Again incidental old granulomatous disease.
== END 2021-10-22 21:00 | disposition home or self-care (01) ==
LOC: ED 18:18
DX: K21.9 Gastro-esophageal reflux disease without esophagitis (principal); R07.9 Chest pain, unspecified; R10.13 Epigastric pain; R11.0 Nausea; R42 Dizziness and giddiness; Z79.891 Long term (current) use of opiate analgesic; Z79.899 Other long term (current) drug therapy
CPT/HCPCS: 36000; 36415; 71045; 71260; 80053; 82150; 83605; 83690; 83880; 84484; 85025; 85379; 85610; 93005; 96374; 99284; J3010; A9270-GY

== ENCOUNTER 2022-01-16 12:24 | Emergency (ER) | payer MEDICARE, OTHER ==
[2022-01-16 12:43] VITALS: O2SAT 100
[2022-01-16 12:43] LABS: Absolute Neutrophil Ct (ANC) 2.81 x10^3/uL (1.4-6.9); Basophil (Absolute #) 0.02 x10^3/uL (0-0.4); Eosinophil % 3.5 % (0.00-5.0); Hematocrit 36.6 % (35-47); Hemoglobin 12.5 g/dL (12.0-16.0); Lymphocyte (Absolute #) 2.01 x10^3/uL (1.0-4.6); Lymphocytes % 35.4 % (24.0-44.0); Mean Cell Volume 88.4 fL (78-100); Mean Corpuscular Hemoglobin 30.2 pg (26-32); Mean Corpuscular Hgb Concent. 34.2 g/dL (32-36); Monocyte (Absolute #) 0.63 x10^3/uL (0.0-1.3); Monocytes % 11.1 % (0.0-12.0); Neutrophil % 49.4 % (36.0-66.0); Platelet Count 303 x10^3/uL (150-450); Red Blood Count 4.14 x10^6/uL (4.1-5.4); White Blood Count 5.7 x10^3/uL (4.0-10.5)
[2022-01-16 13:03] LABS: INR 0.99 (0.8-3.0); PROTIME 10.5 SECONDS (9.4-12.5); PTT 27.6 SECONDS (25.1-36.5)
[2022-01-16 13:04] LABS: ALBUMIN 3.7 g/dL (3.5-5.0); ALKALINE PHOSPHATASE 109 U/L (38-126); ANION GAP 11.9 MEQ/L (5-15); BLOOD UREA NITROGEN 12 mg/dL (7-17); CHLORIDE 107 mmol/L (98-107); Calcium 9.7 mg/dL (8.4-10.2); Carbon Dioxide 23 mmol/L (22-30); Creatinine 1 0.75 mg/dL (0.52-1.04); EST GLOMERULAR FILTRATION RATE > 60.0 ML/MIN; Glucose 118 mg/dL (74-106); NT PRO BNP 134 pg/mL (0-900); Potassium 3.8 mmol/L (3.5-5.1); SGOT/AST 25 U/L (14-36); SGPT/ALT 19 U/L (0-35); SODIUM 137 mmol/L (137-145)
[2022-01-16 13:05] LABS: D-DIMER QUANTITATIVE 0.79 mg/L (0.0-0.50)
--- NOTE | 2022-01-16 13:09 | ERPHSYRPT ---
- History of Present Illness Source: patient Exam Limitations: no limitations Patient Subjective Stated Complaint: C/O SOB Triage Nursing Assessment: Patient SOB with labored breaths upon arrival to ED with 02 sats 100% on room air. Lungs clear. A weak, occ, non-productive cough is noted. Physician History: 66 yo wf w dyspnea x 2 wks which is worse w exertion and after eating. She has a minimal cough but denies coryza/chest pain/N/V/D/melena/hematochezia/fever. She does not smoke. Timing/Duration: other (2wks) Activities at Onset: rest Severity of Dyspnea-Max: moderate Severity of Dyspnea-Current: mild Possible Cause: occasional episodes Modifying Factors: Improves With: activity, other (Food) Associated Symptoms: cough, No chest pain/discomfort, No edema, No fever, No insomnia, No loss of appetite, No lightheadedness, No wheezing, No weakness, No ankle swelling, No chills, No hemoptysis, No calf pain, No dizziness, No heaviness, No heart racing, No lightheadedness, No leg swelling, No muscle spasms feet, No muscle spasms hands, No painful breathing, No productive cough, No sweating, No tightness, No tingling face Allergies/Adverse Reactions: No Known Drug Allergies Allergy (Verified 10/22/21 18:36) Home Medications: Escitalopram Oxalate [Lexapro] 20 mg PO DAILY 06/07/16 [History] Furosemide 20 mg [Lasix 20 mg] 20 mg PO DAILY 06/07/16 [History] Levothyroxine Sodium [Synthroid] 75 mcg PO HS 06/07/16 [History] Cholecalciferol (Vitamin D3) [Vitamin D3] 2,000 unit PO DAILY 03/07/20 [History] Potassium Chloride 10 mg PO DAILY 08/06/20 [History] Thyroid,Pork [[place] Thyroid] 60 mg PO HS 08/07/20 [History] Hx Tetanus, Diphtheria Vaccination/Date Given: Yes Hx Influenza Vaccination/Date Given: Yes Hx Pneumococcal Vaccination/Date Given: No Immunizations Up to Date: Yes Travel Risk - International Travel Have you traveled outside of the country in past 3 weeks: No - Coronavirus Screening Are you exhibiting any of the following symptoms?: Yes Symptoms: Shortness of Breath Close contact with a COVID-19 positive Pt in past 14-21 Days: No - Vaccine Status Have you recieved a Covid-19 vaccination: Yes Sample Weaver: Pfizer - Vaccination Dates Date of 2cond Vaccination (if applicable): 2020 - Review of Systems Constitutional: No Symptoms Eyes: No Symptoms Ears, Nose, & Throat: No Symptoms Respiratory: No Symptoms, Cough, Dyspnea, Dyspnea on Exertion (CARNES) Cardiac: No Symptoms Abdominal/Gastrointestinal: No Symptoms Genitourinary Symptoms: No Symptoms Musculoskeletal: No Symptoms Skin: No Symptoms Neurological: No Symptoms Psychological: No Symptoms Endocrine: No Symptoms Hematologic/Lymphatic: No Symptoms Immunological/Allergic: No Symptoms - Past Medical History Pertinent Past Medical History: Yes Neurological History: No Pertinent History ENT History: Cataracts Cardiac History: No Pertinent History Respiratory History: No Pertinent History Endocrine Medical History: Hypothyroidism Musculoskeletal History: No Pertinent History GI Medical History: Colitis, Hernia History: No Pertinent History Psycho-Social History: Depression Female Reproductive Disorders: No Pertinent History Other Medical History: THYROIDECTOMY, HYSTERECTOMY - Past Surgical History Past Surgical History: Yes Neuro Surgical History: No Pertinent History Cardiac: No Pertinent History Respiratory: No Pertinent History Gastrointestinal: No Pertinent History Genitourinary: No Pertinent History Musculoskeletal: No Pertinent History Female Surgical History: Hysterectomy Other Surgical History: thyroid surgery, abd exploritory sx, scar tissue removed - 1999. - Social History Smoking Status: Never smoker Exposure to second hand smoke: Yes Drug Use: none Patient Lives Alone: No Significant Family History: no pertinent family hx - Nursing Vital Signs Nursing Vital Signs: Initial Vital Signs Temperature 97 F 01/16/22 12:26 Pulse Rate 81 01/16/22 12:26 Respiratory Rate 26 H 01/16/22 12:26 Blood Pressure 152/92 01/16/22 12:26 O2 Sat by Pulse Oximetry 100 01/16/22 12:26 Pain Scale Pain Intensity 0 Hypertensive - Physical Exam General Appearance: no apparent distress, anxiety Eye Exam: PERRL/EOMI, eyes nml inspection Ears, Nose, Throat Exam: hearing grossly normal, normal ENT inspection, normal pharynx Neck Exam: normal inspection, non-tender, supple, full range of motion, No Brudzinski, No Kernig's, No meningismus, No carotid bruit Respiratory Exam: normal breath sounds, lungs clear, airway intact, No respiratory distress Cardiovascular/Chest Exam: normal heart sounds, regular rate/rhythm, normal peripheral pulses, No murmur Abdominal/Gastrointestinal Exam: soft, normal bowel sounds, No tenderness Extremity Exam: non-tender, normal range of motion, normal inspection, normal capillary refill, no calf tenderness Peripheral Pulses Exam: carotid (R): 2+, carotid (L): 2+ Neurologic Exam: alert, oriented x 3, cooperative, palliative care nurse II-XII nml as tested, normal mood/affect, nml cerebellar function, nml station & gait, sensation nml Skin Exam: normal color, warm, dry Lymphatic Exam: No adenopathy SpO2 Interpretation: normal SpO2: 100 O2 Delivery: Room Air - Course Nursing assessment & vital signs reviewed: Yes EKG Interpreted by Me: RATE (NSR/R81/Normal QT-QTc/Normal P waves/Nonspecific T wave abnormality/No acute ST changes) - Radiology Exams Chest X-ray Interpretation: Discussed w/ radiologist (Hyperinflated, otherwise neg) - CT Exams Chest CT Interpretation: Discussed w/radiologist (No PE/HH) Ordered Tests: Active Orders 24 hr Category Date Time Status EKG-ER Only STAT Care 01/16/22 12:26 Completed IV Insertion STAT Care 01/16/22 12:26 Completed CHEST 1 VIEW (PORTABLE) Stat Exams 01/16/22 12:26 Taken CHEST WITH CONTRAST [CT] Stat Exams 01/16/22 14:57 Completed CBC W DIFF Stat Lab 01/16/22 12:30 Completed CMP Stat Lab 01/16/22 12:30 Completed D-DIMER QUANTITATIVE Stat Lab 01/16/22 12:30 Completed NT PRO BNP Stat Lab 01/16/22 12:30 Completed PROTIME WITH INR Stat Lab 01/16/22 12:30 Completed PTT Stat Lab 01/16/22 12:30 Completed T4 (Thyroxine) Stat Lab 01/16/22 12:30 Completed TROPONIN Q3H Lab 01/16/22 12:30 Completed TROPONIN Q3H Lab 01/16/22 15:30 Completed TSH [TSH, 3RD Generation] Stat Lab 01/16/22 12:30 Completed Medication Summary Discontinued Medications Generic Name Dose Route Start Last Admin Trade Name Freq PRN Reason Stop Dose Admin Lorazepam 1 mg 01/16/22 13:47 01/16/22 14:13 Lorazepam 2 Mg/1 Ml 2 Mg Vial IV 01/16/22 13:48 1 mg STAT ONE Administration Lorazepam Confirm 01/16/22 14:05 Lorazepam 2 Mg/1 Ml 2 Mg Vial Administered 01/16/22 14:06 Dose 2 mg .ROUTE .STK-MED ONE Lab/Rad Data: Laboratory Result Diagrams 01/16/22 12:30 01/16/22 12:30 Laboratory Results 01/16/22 01/16/22 01/16/22 Range/Units 15:30 12:30 12:30 WBC (4.0-10.5) x10^3/uL RBC (4.1-5.4) x10^6/uL Hgb (12.0-16.0) g/dL Hct (35-47) % MCV (78-100) fL MCH (26-32) pg MCHC (32-36) g/dL RDW (11.5-14.0) % Plt Count (150-450) x10^3/uL MPV (7.5-11.0) fL Gran % (36.0-66.0) % Immature Gran % (Auto) (0.00-0.4) % Nucleat RBC Rel Count (0.00-0.1) % Eos # (Auto) (0-0.5) x10^3/uL Immature Gran # (Auto) (0.00-0.03) x10^3u/L Absolute Lymphs (auto) (1.0-4.6) x10^3/uL Absolute Monos (auto) (0.0-1.3) x10^3/uL Absolute Nucleated RBC (0.00-0.01) x10^3u/L Lymphocytes % (24.0-44.0) % Monocytes % (0.0-12.0) % Eosinophils % (0.00-5.0) % Basophils % (0.0-0.4) % Absolute Granulocytes (1.4-6.9) x10^3/uL Basophils # (0-0.4) x10^3/uL PT (9.4-12.5) SECONDS INR (0.8-3.0) APTT (25.1-36.5) SECONDS D-Dimer (0.0-0.50) mg/L Sodium (137-145) mmol/L Potassium (3.5-5.1) mmol/L Chloride (98-107) mmol/L Carbon Dioxide (22-30) mmol/L Anion Gap (5-15) MEQ/L BUN (7-17) mg/dL Creatinine (0.52-1.04) mg/dL Estimated GFR ML/MIN Glucose (74-106) mg/dL Calcium (8.4-10.2) mg/dL Total Bilirubin (0.2-1.3) mg/dL AST (14-36) U/L ALT (0-35) U/L Alkaline Phosphatase (38-126) U/L Troponin I < 0.012 (0.000-0.034) ng/mL NT-Pro-B Natriuret Pep (0-900) pg/mL Serum Total Protein (6.3-8.2) g/dL Albumin (3.5-5.0) g/dL Thyroxine (T4) 9.50 (5.53-10.96) ug/dL TSH 3rd Generation < 0.015 L (0.47-4.68) mIU/L Influenza Type A Ag NEGATIVE (NEGATIVE) Influenza Type B Ag NEGATIVE (NEGATIVE) RSV (PCR) NEGATIVE (Negative) SARS-CoV-2 (PCR) NEGATIVE (NEGATIVE) 01/16/22 01/16/22 01/16/22 Range/Units 12:30 12:30 12:30 WBC (4.0-10.5) x10^3/uL RBC (4.1-5.4) x10^6/uL Hgb (12.0-16.0) g/dL Hct (35-47) % MCV (78-100) fL MCH (26-32) pg MCHC (32-36) g/dL RDW (11.5-14.0) % Plt Count (150-450) x10^3/uL MPV (7.5-11.0) fL Gran % (36.0-66.0) % Immature Gran % (Auto) (0.00-0.4) % Nucleat RBC Rel Count (0.00-0.1) % Eos # (Auto) (0-0.5) x10^3/uL Immature Gran # (Auto) (0.00-0.03) x10^3u/L Absolute Lymphs (auto) (1.0-4.6) x10^3/uL Absolute Monos (auto) (0.0-1.3) x10^3/uL Absolute Nucleated RBC (0.00-0.01) x10^3u/L Lymphocytes % (24.0-44.0) % Monocytes % (0.0-12.0) % Eosinophils % (0.00-5.0) % Basophils % (0.0-0.4) % Absolute Granulocytes (1.4-6.9) x10^3/uL Basophils # (0-0.4) x10^3/uL PT 10.5 (9.4-12.5) SECONDS INR 0.99 (0.8-3.0) APTT 27.6 (25.1-36.5) SECONDS D-Dimer 0.79 H* (0.0-0.50) mg/L Sodium 137 (137-145) mmol/L Potassium 3.8 (3.5-5.1) mmol/L Chloride 107 (98-107) mmol/L Carbon Dioxide 23 (22-30) mmol/L Anion Gap 11.9 (5-15) MEQ/L BUN 12 (7-17) mg/dL Creatinine 0.75 (0.52-1.04) mg/dL Estimated GFR > 60.0 ML/MIN Glucose 118 H (74-106) mg/dL Calcium 9.7 (8.4-10.2) mg/dL Total Bilirubin 0.40 (0.2-1.3) mg/dL AST 25 (14-36) U/L ALT 19 (0-35) U/L Alkaline Phosphatase 109 (38-126) U/L Troponin I < 0.012 (0.000-0.034) ng/mL NT-Pro-B Natriuret Pep 134 (0-900) pg/mL Serum Total Protein 7.0 (6.3-8.2) g/dL Albumin 3.7 (3.5-5.0) g/dL Thyroxine (T4) (5.53-10.96) ug/dL TSH 3rd Generation (0.47-4.68) mIU/L Influenza Type A Ag (NEGATIVE) Influenza Type B Ag (NEGATIVE) RSV (PCR) (Negative) SARS-CoV-2 (PCR) (NEGATIVE) 01/16/22 Range/Units 12:30 WBC 5.7 (4.0-10.5) x10^3/uL RBC 4.14 (4.1-5.4) x10^6/uL Hgb 12.5 (12.0-16.0) g/dL Hct 36.6 (35-47) % MCV 88.4 (78-100) fL MCH 30.2 (26-32) pg MCHC 34.2 (32-36) g/dL RDW 12.0 (11.5-14.0) % Plt Count 303 (150-450) x10^3/uL MPV 10.0 (7.5-11.0) fL Gran % 49.4 (36.0-66.0) % Immature Gran % (Auto) 0.2 (0.00-0.4) % Nucleat RBC Rel Count 0.0 (0.00-0.1) % Eos # (Auto) 0.20 (0-0.5) x10^3/uL Immature Gran # (Auto) 0.01 (0.00-0.03) x10^3u/L Absolute Lymphs (auto) 2.01 (1.0-4.6) x10^3/uL Absolute Monos (auto) 0.63 (0.0-1.3) x10^3/uL Absolute Nucleated RBC 0.00 (0.00-0.01) x10^3u/L Lymphocytes % 35.4 (24.0-44.0) % Monocytes % 11.1 (0.0-12.0) % Eosinophils % 3.5 (0.00-5.0) % Basophils % 0.4 (0.0-0.4) % Absolute Granulocytes 2.81 (1.4-6.9) x10^3/uL Basophils # 0.02 (0-0.4) x10^3/uL PT (9.4-12.5) SECONDS INR (0.8-3.0) APTT (25.1-36.5) SECONDS D-Dimer (0.0-0.50) mg/L Sodium (137-145) mmol/L Potassium (3.5-5.1) mmol/L Chloride (98-107) mmol/L Carbon Dioxide (22-30) mmol/L Anion Gap (5-15) MEQ/L BUN (7-17) mg/dL Creatinine (0.52-1.04) mg/dL Estimated GFR ML/MIN Glucose (74-106) mg/dL Calcium (8.4-10.2) mg/dL Total Bilirubin (0.2-1.3) mg/dL AST (14-36) U/L ALT (0-35) U/L Alkaline Phosphatase (38-126) U/L Troponin I (0.000-0.034) ng/mL NT-Pro-B Natriuret Pep (0-900) pg/mL Serum Total Protein (6.3-8.2) g/dL Albumin (3.5-5.0) g/dL Thyroxine (T4) (5.53-10.96) ug/dL TSH 3rd Generation (0.47-4.68) mIU/L Influenza Type A Ag (NEGATIVE) Influenza Type B Ag (NEGATIVE) RSV (PCR) (Negative) SARS-CoV-2 (PCR) (NEGATIVE) - Progress Progress: improved Progress Note: 01/16/22 16:09 1mg IV Ativan w improvement 01/16/22 22:31 Pt wo evidence of PE/WA/CHF/Pneumonia/CV19 during stay Counseled pt/family regarding: lab results, diagnosis, need for follow-up, rad results - Departure Departure Disposition: Home Clinical Impression: Dyspnea, Anxiety Condition: Stable Critical Care Time: No Referrals: NICO TYSON, [Primary Care Provider] - Follow up/PCP as directed Instructions: Anxiety, Adult (DC), Shortness of Breath (Dyspnea) (DC) Additional Instructions: Follow up with your family MD Return to ER for increasing shortness of breath/chest pain/temperature greater than 100.5
[2022-01-16 13:26] LABS: INFLUENZA A NEGATIVE (NEGATIVE); INFLUENZA B NEGATIVE (NEGATIVE); RESPIRATORY SYNCTIAL VIRUS NEGATIVE (Negative); SARS-CoV-2 Xpert Express NEGATIVE (NEGATIVE)
[2022-01-16 13:53] LABS: TSH, 3RD Generation < 0.015 mIU/L (0.47-4.68)
[2022-01-16] MEDS ORDERED: Ativan 2 MG/1 ML VIAL ONE (14:05)
[2022-01-16] MEDS: Ativan 2 MG/1 ML VIAL IV ONE (14:13)
[2022-01-16 14:16] VITALS: PULSE 78
--- NOTE | 2022-01-16 15:56 | XRAY ---
Indication: Short of breath, chest heaviness/pressure, and elevated d-dimer. Multiple contiguous axial images obtained through the chest using 80 cc Isovue 370 contrast and PE protocol. Comparison: October 22, 2021 Good opacification of the pulmonary arteries to include the lobar and segmental branches. No pulmonary embolus. Heart not enlarged. Aorta remains normal in course and caliber. Stable small mediastinal and right hilar calcified nodes. No pathologic mediastinal/hilar lymphadenopathy. Again moderate sized hiatal hernia with partial intrathoracic stomach. Lungs again demonstrates mild bilateral dependent atelectasis and posterior right lower lobe calcified granuloma. No new pulmonary mass, infiltrate, effusion, or pneumothorax. Bony thorax intact. Limited upper abdomen unremarkable. Impression: 1. Continued negative pulmonary embolus. No new/acute cardiopulmonary abnormalities. 2. Again hiatal hernia with partial intrathoracic stomach and old granulomatous disease.
[2022-01-16 16:58] VITALS: BP 112/58
== END 2022-01-16 16:55 | disposition home or self-care (01) ==
LOC: ED 12:24
DX: R06.00 Dyspnea, unspecified (principal); F41.9 Anxiety disorder, unspecified; R05.9 Cough, unspecified; Z79.899 Other long term (current) drug therapy; Z20.828 Contact with and (suspected) exposure to other viral communicable diseases
CPT/HCPCS: 0241U; 36000; 36415; 71045; 71260; 80053; 83880; 84436; 84443; 84484; 85025; 85379; 85610; 85730; 93005; 96374; 99284; J2060

== ENCOUNTER 2022-02-27 09:26 | Emergency (ER) | payer MEDICARE, OTHER ==
--- NOTE | 2022-02-27 09:33 | ERPHSYRPT ---
- History of Present Illness Time Seen by Provider: 02/27/22 09:33 Source: patient, family Exam Limitations: no limitations Physician History: This is a 66-year-old white female who presents with approximately 3 weeks history of dizziness. Patient was treated with Dramamine which did not help. Ultimately, she was placed on a scopolamine patch which helped significantly to resolve her symptoms. She was placed on this medication prior to her leaving on vacation. She returned to town approximately 2 days ago. She no longer has scopolamine patches and her symptoms recurred. Patient denies chest pain. She denies shortness of breath. She has never had anything like this before. Patient does have a history of colitis, depression and hypothyroidism. She denies head injury. There are no new medications. Patient denies headache. Patient denies numbness and denies weakness on the body or face. Patient has no visual changes. Timing/Duration: week(s), other (Recurred approximately 2 days ago after she ran out of scopolamine patches.) Severity: moderate Character of Deficits: none Deficits: decrease ability to stand, decrease ability to walk Baseline/Normal Cognition: alert oriented x 3 Current Cognition: alert oriented x 3 Baseline Gait: walks w/o assistance Associated Symptoms: trouble walking (Secondary to feeling off balance while she is walking) Allergies/Adverse Reactions: No Known Drug Allergies Allergy (Verified 02/27/22 09:55) Home Medications: Escitalopram Oxalate [Lexapro] 10 mg PO DAILY 06/07/16 [History] Furosemide 20 mg [Lasix 20 mg] 20 mg PO DAILY 06/07/16 [History] Levothyroxine Sodium [Synthroid] 75 mcg PO HS 06/07/16 [History] Levothyroxine Sodium [Synthroid] 112 mcg PO BID 02/27/22 [History] Liothyronine Sodium 5 mcg PO BID 02/27/22 [History] Sucralfate 1 gm [Carafate 1 GM] 1 gm PO BID 02/27/22 [History] Hx Tetanus, Diphtheria Vaccination/Date Given: Yes Hx Influenza Vaccination/Date Given: Yes Hx Pneumococcal Vaccination/Date Given: No Travel Risk - International Travel Have you traveled outside of the country in past 3 weeks: No - Coronavirus Screening Are you exhibiting any of the following symptoms?: No Close contact with a COVID-19 positive Pt in past 14-21 Days: No - Vaccine Status Have you recieved a Covid-19 vaccination: Yes 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[employer] - Vaccination Dates Date of 2cond Vaccination (if applicable): 2020 - Review of Systems Constitutional: No Symptoms Eyes: No Symptoms Ears, Nose, & Throat: No Symptoms Respiratory: No Symptoms Cardiac: No Symptoms Abdominal/Gastrointestinal: No Symptoms Genitourinary Symptoms: No Symptoms Musculoskeletal: No Symptoms Skin: No Symptoms Neurological: Dizziness Psychological: No Symptoms Endocrine: No Symptoms Hematologic/Lymphatic: No Symptoms Immunological/Allergic: No Symptoms All Other Systems: Reviewed and Negative - Past Medical History Pertinent Past Medical History: Yes Neurological History: No Pertinent History ENT History: Cataracts Cardiac History: No Pertinent History Respiratory History: No Pertinent History Endocrine Medical History: Hypothyroidism Musculoskeletal History: No Pertinent History GI Medical History: Colitis, Hernia History: No Pertinent History Psycho-Social History: Depression Female Reproductive Disorders: No Pertinent History Other Medical History: THYROIDECTOMY, HYSTERECTOMY - Past Surgical History Past Surgical History: Yes Neuro Surgical History: No Pertinent History Cardiac: No Pertinent History Respiratory: No Pertinent History Gastrointestinal: No Pertinent History Genitourinary: No Pertinent History Musculoskeletal: No Pertinent History Female Surgical History: Hysterectomy Other Surgical History: thyroid surgery, abd exploritory sx, scar tissue removed - 1999. - Social History Smoking Status: Never smoker Exposure to second hand smoke: Yes Drug Use: none Patient Lives Alone: No Significant Family History: no pertinent family hx - Nursing Vital Signs Nursing Vital Signs: Initial Vital Signs Temperature 96.5 F 02/27/22 09:39 Pulse Rate 69 02/27/22 09:39 Blood Pressure 134/76 02/27/22 09:39 O2 Sat by Pulse Oximetry 95 02/27/22 09:39 Pain Scale Pain Intensity 5 - [place] Coma Scale Best Eye Response (Christ[place]): (4) open spontaneously Best Verbal Response ([place]): (5) oriented Best Motor Response ([place]): (6) obeys commands [place] Total: 15 - Physical Exam General Appearance: no apparent distress, alert, anxiety Eye Exam: bilateral eye: normal inspection, PERRL, EOMI Ears, Nose, Throat Exam: normal ENT inspection, TMs normal, pharynx normal, moist mucous membranes Neck Exam: normal inspection, non-tender, supple, full range of motion Respiratory: normal breath sounds, lungs clear, airway intact, No chest tenderness, No respiratory distress Cardiovascular: regular rate/rhythm, normal heart sounds, normal peripheral pulses Gastrointestinal: soft, normal bowel sounds, No tenderness Pelvic Exam: not done Rectal Exam: not done Back Exam: normal inspection, normal range of motion, No CVA tenderness, No vert ebral tenderness Extremity Exam: normal inspection, normal range of motion, pelvis stable Mental Status: alert, 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 No acute ischemic changes present.) Ordered Tests: Active Orders 24 hr Category Date Time Status EKG-ER Only STAT Care 02/27/22 09:48 Active IV Insertion STAT Care 02/27/22 09:48 Active HEAD WITHOUT CONTRAST [CT] Stat Exams 02/27/22 10:54 Completed CBC W DIFF Stat Lab 02/27/22 09:48 Completed CMP Stat Lab 02/27/22 10:20 Completed CULTURE,URINE Stat Lab 02/27/22 10:47 Received MAGNESIUM Stat Lab 02/27/22 10:20 Completed T4 (Thyroxine) Stat Lab 02/27/22 10:20 Completed TROPONIN Q4H Lab 02/27/22 10:20 Completed TROPONIN Q4H Lab 02/27/22 14:00 Ordered TROPONIN Q4H Lab 02/27/22 18:00 Ordered TSH, 3RD Generation Stat Lab 02/27/22 10:20 Completed UA W/RFX CULTURE Stat Lab 02/27/22 10:47 Completed Medication Summary Discontinued Medications Generic Name Dose Route Start Last Admin Trade Name Freq PRN Reason Stop Dose Admin Sodium Chloride 1,000 mls @ 999 mls/hr 02/27/22 09:48 02/27/22 11:59 Sodium Chloride 0.9% 1000 Ml IV 02/27/22 10:48 Infused .Q1H1M STA Infusion Sodium Chloride Confirm 02/27/22 10:13 Sodium Chloride 0.9% 1000 Ml Administered 02/27/22 10:14 Dose 1,000 mls @ ud .ROUTE .STK-MED ONE Ondansetron HCl 4 mg 02/27/22 09:48 02/27/22 10:16 Ondansetron Hcl 4 Mg/2 Ml Vial IV 02/27/22 09:49 4 mg STAT ONE Administration Ondansetron HCl Confirm 02/27/22 10:13 Ondansetron Hcl 4 Mg/2 Ml Vial Administered 02/27/22 10:14 Dose 4 mg .ROUTE .STK-MED ONE Scopolamine HBr 1.5 mg 02/27/22 11:34 02/27/22 12:03 Scopolamine 1.5 Mg Patch TOP 02/27/22 11:35 1.5 mg STAT ONE Administration Lab/Rad Data: Laboratory Result Diagrams 02/27/22 09:48 02/27/22 10:20 Laboratory Results 02/27/22 02/27/22 02/27/22 Range/Units 10:47 10:20 10:20 WBC (4.0-10.5) x10^3/uL RBC (4.1-5.4) x10^6/uL Hgb (12.0-16.0) g/dL Hct (35-47) % MCV (78-100) fL MCH (26-32) pg MCHC (32-36) g/dL RDW (11.5-14.0) % Plt Count (150-450) x10^3/uL MPV (7.5-11.0) fL Gran % (36.0-66.0) % Immature Gran % (Auto) (0.00-0.4) % Nucleat RBC Rel Count (0.00-0.1) % Eos # (Auto) (0-0.5) x10^3/uL Immature Gran # (Auto) (0.00-0.03) x10^3u/L Absolute Lymphs (auto) (1.0-4.6) x10^3/uL Absolute Monos (auto) (0.0-1.3) x10^3/uL Absolute Nucleated RBC (0.00-0.01) x10^3u/L Lymphocytes % (24.0-44.0) % Monocytes % (0.0-12.0) % Eosinophils % (0.00-5.0) % Basophils % (0.0-0.4) % Absolute Granulocytes (1.4-6.9) x10^3/uL Basophils # (0-0.4) x10^3/uL Sodium 138 (137-145) mmol/L Potassium 3.7 (3.5-5.1) mmol/L Chloride 101 (98-107) mmol/L Carbon Dioxide 29 (22-30) mmol/L Anion Gap 11.8 (5-15) MEQ/L BUN 12 (7-17) mg/dL Creatinine 0.97 (0.52-1.04) mg/dL Estimated GFR > 60.0 ML/MIN Glucose 103 (74-106) mg/dL Calcium 9.3 (8.4-10.2) mg/dL Magnesium 1.9 (1.6-2.3) mg/dL Total Bilirubin 0.50 (0.2-1.3) mg/dL AST 29 (14-36) U/L ALT 19 (0-35) U/L Alkaline Phosphatase 144 H (38-126) U/L Troponin I < 0.012 (0.000-0.034) ng/mL Serum Total Protein 7.8 (6.3-8.2) g/dL Albumin 4.3 (3.5-5.0) g/dL Thyroxine (T4) 1.46 L (5.53-10.96) ug/dL TSH 3rd Generation 60.000 H (0.47-4.68) mIU/L Urinalys Dipstick Clnc MAIN LAB Urine Color YELLOW (YELLOW) Urine Appearance CLEAR (CLEAR) Urine pH 5.0 (5-6) Ur Specific [place] 1.020 (1.005-1.025) POC Urine Protein Conf NEGATIVE (Negative) Urine Ketones NEGATIVE (NEGATIVE) Urine Nitrite NEGATIVE (NEGATIVE) Urine Bilirubin NEGATIVE (NEGATIVE) Urine Urobilinogen 0.2 (0-1) mg/dL Urine Leukocytes TRACE (NEGATIVE) Urine WBC (Auto) 0-2 (0-5) /HPF Urine RBC (Auto) NONE (0-2) /HPF U Hyaline Cast (Auto) 11-25 (0-2) /LPF U Epithel Cells (Auto) RARE (FEW) /HPF Urine Bacteria (Auto) RARE (NEGATIVE) /HPF Urine RBC TRACE-LYSED (0-5) Marco A/ul Urine Mucus (Auto) SLIGHT (NEGATIVE) /HPF Ur Culture Indicated? YES Urine Glucose NEGATIVE (NEGATIVE) mg/dL 02/27/22 Range/Units 09:48 WBC 3.5 L (4.0-10.5) x10^3/uL RBC 4.67 (4.1-5.4) x10^6/uL Hgb 13.7 (12.0-16.0) g/dL Hct 42.3 (35-47) % MCV 90.6 (78-100) fL MCH 29.3 (26-32) pg MCHC 32.4 (32-36) g/dL RDW 12.7 (11.5-14.0) % Plt Count 288 (150-450) x10^3/uL MPV 9.4 (7.5-11.0) fL Gran % 44.4 (36.0-66.0) % Immature Gran % (Auto) 0.0 (0.00-0.4) % Nucleat RBC Rel Count 0.0 (0.00-0.1) % Eos # (Auto) 0.19 (0-0.5) x10^3/uL Immature Gran # (Auto) 0.00 (0.00-0.03) x10^3u/L Absolute Lymphs (auto) 1.32 (1.0-4.6) x10^3/uL Absolute Monos (auto) 0.43 (0.0-1.3) x10^3/uL Absolute Nucleated RBC 0.00 (0.00-0.01) x10^3u/L Lymphocytes % 37.4 (24.0-44.0) % Monocytes % 12.2 H (0.0-12.0) % Eosinophils % 5.4 H (0.00-5.0) % Basophils % 0.6 (0.0-0.4) % Absolute Granulocytes 1.57 (1.4-6.9) x10^3/uL Basophils # 0.02 (0-0.4) x10^3/uL Sodium (137-145) mmol/L Potassium (3.5-5.1) mmol/L Chloride (98-107) mmol/L Carbon Dioxide (22-30) mmol/L Anion Gap (5-15) MEQ/L BUN (7-17) mg/dL Creatinine (0.52-1.04) mg/dL Estimated GFR ML/MIN Glucose (74-106) mg/dL Calcium (8.4-10.2) mg/dL Magnesium (1.6-2.3) mg/dL Total Bilirubin (0.2-1.3) mg/dL AST (14-36) U/L ALT (0-35) U/L Alkaline Phosphatase (38-126) U/L Troponin I (0.000-0.034) ng/mL Serum Total Protein (6.3-8.2) g/dL Albumin (3.5-5.0) g/dL Thyroxine (T4) (5.53-10.96) ug/dL TSH 3rd Generation (0.47-4.68) mIU/L Urinalys Dipstick Clnc Urine Color (YELLOW) Urine Appearance (CLEAR) Urine pH (5-6) Ur Specific [place] (1.005-1.025) POC Urine Protein Conf (Negative) Urine Ketones (NEGATIVE) Urine Nitrite (NEGATIVE) Urine Bilirubin (NEGATIVE) Urine Urobilinogen (0-1) mg/dL Urine Leukocytes (NEGATIVE) Urine WBC (Auto) (0-5) /HPF Urine RBC (Auto) (0-2) /HPF U Hyaline Cast (Auto) (0-2) /LPF U Epithel Cells (Auto) (FEW) /HPF Urine Bacteria (Auto) (NEGATIVE) /HPF Urine RBC (0-5) Marco A/ul Urine Mucus (Auto) (NEGATIVE) /HPF Ur Culture Indicated? Urine Glucose (NEGATIVE) mg/dL - Progress Progress: unchanged Progress Note: 02/27/22 11:19 CT scan of the head without contrast shows a nonacute senile brain with incidental remote lacunar infarct right basal ganglia. 02/27/22 11:55 I [address] to contact Dr. Meza who is the patient's primary care provider. She is out today. However, Dr. Zavala is covering for her in her absence and I will contact him to discuss this patient. 02/27/22 12:[address] Zavala who is covering for Dr. Meza. The plan for her is to have the scopolamine patch placed back on her for 72 hours. This will help relieve some of her symptoms. She is to take her thyroid medication as prescribed. She is to call Dr. Meza's office today to make an appointment for 03/01/2022. I discussed the findings of the CAT scan of the head with out contrast with both Dr. Zavala and the patient as well as the patient's family. She will follow-up with Dr. Meza regarding this finding as well. Discussed with : Marcus Counseled pt/family regarding: lab results, diagnosis, need for follow-up, rad results - Departure Departure Disposition: Home Clinical Impression: Dizziness, Hypothyroid Condition: Stable Critical Care Time: No [facility] - Follow up/PCP as directed Additional Instructions: Take your medication as prescribed. Call your prescribing provider today to make arrangements for follow-up appointment for further evaluation and management.
[2022-02-27] MEDS ORDERED: Sodium Chloride 0.9% 1000 ML 1,000 ML IV STA (09:48)
[2022-02-27] MEDS ORDERED: Zofran 4 MG/2 ML VIAL IV ONE (09:48)
[2022-02-27] MEDS ORDERED: Sodium Chloride 0.9% 1000 ML 1,000 ML ONE (10:13)
[2022-02-27] MEDS ORDERED: Zofran 4 MG/2 ML VIAL ONE (10:13)
[2022-02-27 10:32] LABS: Absolute Neutrophil Ct (ANC) 1.57 x10^3/uL (1.4-6.9); Basophil (Absolute #) 0.02 x10^3/uL (0-0.4); Eosinophil % 5.4 % (0.00-5.0); Eosinophil (Absolute #) 0.19 x10^3/uL (0-0.5); Hematocrit 42.3 % (35-47); Hemoglobin 13.7 g/dL (12.0-16.0); Lymphocyte (Absolute #) 1.32 x10^3/uL (1.0-4.6); Lymphocytes % 37.4 % (24.0-44.0); Mean Cell Volume 90.6 fL (78-100); Mean Corpuscular Hemoglobin 29.3 pg (26-32); Mean Corpuscular Hgb Concent. 32.4 g/dL (32-36); Mean Platelet Volume 9.4 fL (7.5-11.0); Monocyte (Absolute #) 0.43 x10^3/uL (0.0-1.3); Monocytes % 12.2 % (0.0-12.0); Neutrophil % 44.4 % (36.0-66.0); Platelet Count 288 x10^3/uL (150-450); Red Blood Count 4.67 x10^6/uL (4.1-5.4); Red Cell Distribution Width 12.7 % (11.5-14.0); White Blood Count 3.5 x10^3/uL (4.0-10.5)
[2022-02-27 10:46] LABS: Bacteria RARE /HPF (NEGATIVE); Epithelial Cells RARE /HPF (FEW); Mucus SLIGHT /HPF (NEGATIVE); WBC 0-2 /HPF (0-5)
[2022-02-27 10:47] LABS: Appearance CLEAR (CLEAR); Bilirubin NEGATIVE (NEGATIVE); Glucose NEGATIVE (NEGATIVE); Ketones NEGATIVE (NEGATIVE)
[2022-02-27 10:48] LABS: Dipstick done @ ? MAIN LAB; Nitrite NEGATIVE (NEGATIVE); Protein,Urine Dip NEGATIVE (Negative); RBC TRACE-LYSED Ery/ul (0-5); Urobilinogen 0.2 mg/dL (0-1)
[2022-02-27 10:49] LABS: Urine Cultured Indicated? YES
--- NOTE | 2022-02-27 11:07 | XRAY ---
Indication: Headache, dizziness, nausea 2 weeks. Multiple contiguous axial images obtained through the head without contrast. Comparison: August 08, 2020 Again age-appropriate global atrophy, minimal periventricular degenerative micro-ischemia, and remote lacunar infarct right basal ganglia. No acute intracranial hemorrhage, abnormal extra-axial fluid collection, or mass effect. Fourth ventricle is midline without hydrocephalus. Bony calvarium intact. Visualized paranasal sinuses and mastoid air cells are clear. Impression: Continued nonacute senile brain with incidental remote lacunar infarct right basal ganglia.
[2022-02-27 11:34] LABS: ALBUMIN 4.3 g/dL (3.5-5.0); ALKALINE PHOSPHATASE 144 U/L (38-126); ANION GAP 11.8 MEQ/L (5-15); BLOOD UREA NITROGEN 12 mg/dL (7-17); CHLORIDE 101 mmol/L (98-107); Calcium 9.3 mg/dL (8.4-10.2); Carbon Dioxide 29 mmol/L (22-30); Creatinine 1 0.97 mg/dL (0.52-1.04); EST GLOMERULAR FILTRATION RATE > 60.0 ML/MIN; Glucose 103 mg/dL (74-106); MAGNESIUM 1.9 mg/dL (1.6-2.3); Potassium 3.7 mmol/L (3.5-5.1); SGOT/AST 29 U/L (14-36); SGPT/ALT 19 U/L (0-35); SODIUM 138 mmol/L (137-145); T4 (Thyroxine) 1.46 ug/dL (5.53-10.96); Total Protein 7.8 g/dL (6.3-8.2)
[2022-02-27] MEDS ORDERED: Transderm Scop 1.5MG Patch TOP ONE (11:34)
[2022-02-27 12:18] VITALS: BP 144/79; PULSE 60; O2SAT 97
== END 2022-02-27 12:37 | disposition home or self-care (01) ==
LOC: ED 09:26
DX: R42 Dizziness and giddiness (principal); E03.9 Hypothyroidism, unspecified; Z79.899 Other long term (current) drug therapy
CPT/HCPCS: 36415; 70450; 80053; 81015; 83735; 84436; 84443; 84484; 85025; 87086; 93005; 96360; 96374; 96375; 99284; J2405; A9270-GY